=== PATIENT | female | born 1955 | race Caucasian/White ===

== ENCOUNTER 2017-05-11 16:11 | Observation (INO) ==
--- NOTE | 2017-05-11 16:29 | Emergency Department Note ---
Disposition Clinical Impression: Confusion Pneumonia Qualifiers: Pneumonia type: due to unspecified organism Laterality: unspecified laterality Lung location: unspecified part of lung Qualified Code(s): J18.9 - Pneumonia, unspecified organism Disposition: Admitted As Inpatient Condition: Fair Referrals: Rolando Rolon MD [Primary Care Provider] - Forms: Work/School Release, ED Satisfaction Letter Time of Disposition: 19:08 Abdominal Pain HPI - General Chief Complaint: ED Shortness of Breath/Dyspnea Stated Complaint: abd pain, STARLA Time Seen by Provider: 05/11/17 16:19 Source: patient, EMS Mode of arrival: EMS Limitations: no limitations Nursing Notes Reviewed: Yes Vital Signs Reviewed: Yes - History of Present Illness HPI Narrative: 61-year-old female with history of MS comes in with abdominal pain feeling "foggy" and also having some shortness of breath. Patient was recently hospitalized for shortness of breath possible pneumonia. 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 Consistency: constant Location: diffuse Pain Severity: mild Pain Scale: 0 Quality: aching Radiation: none Migration to: no migration Improves with: nothing Worsens with: nothing - Related Data Home Medications Medication Instructions Recorded Confirmed Baclofen [Lioresal] 10 - 20 mg PO BID PRN 05/07/17 05/11/17 Esomeprazole Magnesium [Nexium] 40 mg PO BID 05/07/17 05/11/17 Gabapentin [Neurontin] 300 mg PO BID 05/07/17 05/11/17 Loratadine [Allergy Relief] 10 mg PO DAILY 05/07/17 05/11/17 Nystatin 1 appl TP BID 05/07/17 05/11/17 Polyethylene Glycol 3350 [MiraLAX] 17 gm PO BID PRN 05/07/17 05/11/17 Ziprasidone HCl [Geodon] 80 mg PO HS 05/07/17 05/11/17 Acetaminophen [Tylenol] 500 mg PO Q6HR PRN 05/11/17 05/11/17 Multivitamin [One Daily 1 each PO DAILY 05/11/17 05/11/17 Multivitamin] Oxygen 3 l NS AD 05/11/17 05/11/17 predniSONE [PredniSONE] See Taper PO DAILY 05/11/17 05/11/17 Previous Rx's Medication Instructions Recorded Lisinopril [Zestril] 10 mg PO DAILY #30 tablet 05/10/17 levoFLOXacin [Levaquin] 500 mg PO DAILY #3 tablet 05/10/17 Allergies Allergy/AdvReac Type Severity Reaction Status Date / Time ciprofloxacin [From Cipro] Allergy Itching Verified 05/06/17 18:45 egg Allergy See Verified 05/06/17 18:45 Comments morphine Allergy Hives Verified 05/06/17 18:45 Sulfa (Sulfonamide Allergy Rash Verified 05/06/17 18:45 Antibiotics) All systems ED: reviewed and negative except as stated. Constitutional: Denies: fever, chills, weakness, weight change Eyes: Denies: eye pain, eye discharge, vision change ENT ED: Denies: ear pain, throat pain, dental pain, hearing loss, epistaxis, congestion, dysphagia Cardiovascular: Denies: chest pain, palpitations, dyspnea on exertion, edema, syncope Respiratory: Denies: cough, dyspnea, wheezes, hemoptysis, stridor Gastrointestinal: Reports: abdominal pain. Denies: nausea, vomiting, diarrhea, constipation, hematemesis, melena, hematochezia Genitourinary: Denies: dysuria, frequency, hematuria, discharge Musculoskeletal: Denies: back pain, neck pain, arthralgia, myalgia Integumentary: Denies: rash, abrasion, lesions Neurological: Reports: confusion. 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 Psychiatric history: Reports: anxiety, depression - Social History Smoking status: Never smoker Alcohol use: Reports: none Drug use: Reports: none Physical Exam - General Limitations: no limitations General appearance: alert, in no apparent distress - Head Head exam: atraumatic, normocephalic, normal inspection - Eye Eye exam: Present: normal appearance, PERRL, EOMI - ENT ENT exam: normal exam, normal oropharynx, mucous membranes moist - Neck Neck exam: Present: normal inspection, full ROM, trachea midline - Chest Chest inspection: Present: normal inspection, symmetric chest wall rise - Respiratory Respiratory exam: Present: normal lung sounds bilaterally - Cardiovascular Cardiovascular exam: Present: regular rate, normal rhythm, normal heart sounds - Abdominal Exam Abdominal exam: Present: soft, tenderness. Absent: distention, guarding, rebound, rigidity - Extremities Exam Extremities exam: Present: normal inspection, full ROM. Absent: tenderness, pedal edema - Expanded Lower Extremity Exam Neurovascular/Tendon exam: Absent: motor deficit, sensory deficit, tendon deficit Gait: not tested/not observed - Back Exam Back exam: Present: normal inspection, full ROM. Absent: tenderness - Neurological Exam Neurological exam: Present: alert, oriented X3 - Psychiatric Psychiatric exam: Present: normal affect, normal mood - Skin Skin exam: Present: warm, dry, intact, normal color Course - Reevaluation(s) Reevaluation #1: 61-year-old who comes in with confusion Foggie cough congested. She does have some infiltrates that were thought to be atelectasis but clinically she does have pneumonia. To give her Zosyn and admit her. Time: 19:08 - Consultations Consultation #1: Discussed with Time: 19:08 Vital Signs Temperature 98.2 F 05/11/17 16:15 Pulse Rate 97 05/11/17 16:15 Respiratory Rate 18 05/11/17 16:15 Blood Pressure 129/76 05/11/17 16:15 O2 Sat by Pulse Oximetry 97 05/11/17 16:15 Temperature 98.2 F 05/11/17 16:15 Pulse Rate 107 05/11/17 17:32 Respiratory Rate 23 05/11/17 17:32 Blood Pressure 129/76 05/11/17 17:32 O2 Sat by Pulse Oximetry 94 05/11/17 17:32 Oxygen Delivery Oxygen Delivery Nasal Cannula Abdominal Pain - Lab Data Result diagrams: 05/11/17 18:07 05/11/17 18:07 Lab Results 05/11/17 05/11/17 05/11/17 Range/Units 18:07 18:07 18:07 WBC 10.3 (4.3-11.1) K/mcL RBC 4.59 (3.82-4.97) M/mcL Hgb 12.6 (11.5-15.4) g/dL Hct 41.3 (35.3-44.9) % MCV 90.0 (83.0-100.0) fL MCH 27.5 L (28.0-33.3) pg MCHC 30.5 L (31.6-35.5) g/dL RDW 16.5 H (11.5-14.5) % Plt Count 243 (140-400) K/mcL MPV 11.2 (9.4-12.4) fL Nucleated RBCs/100 WBC 0.2 H (0) /100 WBC Sodium 137 (136-145) mEq/L Potassium 4.1 (3.5-5.1) mEq/L Chloride 100 (98-107) mEq/L Carbon Dioxide 28 (23-29) mEq/L BUN 16 (8-23) mg/dL Creatinine 0.91 (0.60-1.20) mg/dL Est GFR ( Amer) > 60 (> 60) Est GFR (Non-Af Amer) > 60 (> 60) BUN/Creatinine Ratio 18 (6-26) Glucose 121 H (70-105) mg/dL Calculated Osmolality 286 (280-300) Calcium 9.4 (8.6-10.3) mg/dL Total Bilirubin 0.4 (0.3-1.0) mg/dL Direct Bilirubin 0.1 (0.0-0.2) mg/dL Indirect Bilirubin 0.3 (0.0-1.2) mg/dL AST 74 H (13-39) Units/L ALT 193 H (7-52) Units/L Alkaline Phosphatase 64 (34-104) Units/L Troponin I < 0.03 (< 0.04) ng/mL Serum Total Protein 6.9 (6.4-8.9) g/dL Albumin 4.0 (3.5-5.7) g/dL Globulin 2.9 (2.4-3.5) g/dL Albumin/Globulin Ratio 1.4 (1.1-2.2) Amylase 61 (29-103) Units/L Lipase 50 (11-82) Units/L - Radiology Data Radiology results reviewed: Yes I reviewed the patient's radiology results. Abdomen/Pelvis CT 05/11/17 16:22 IMPRESSION: 1. No acute abnormality identified within the abdomen pelvis. 2. Bibasilar airspace disease, greater on the left, probably atelectasis. Correlate with any clinical evidence of pneumonia or aspiration. 3. Re- demonstration of a wide mouthed hernia involving the lower abdomen and pelvis, containing multiple loops of large and small bowel, but without evidence of obstruction. 4. Re- demonstration of a 6.4 cm left adnexal cyst, which remains indeterminate. Based upon the ultrasound in early April, surgical consultation should be considered. D/ / Mac Alves MD / Mac Alves MD Interpreting Provider: Mac Alves MD Head CT 05/11/17 16:23 IMPRESSION: No acute intracranial abnormality. D/ / Julius Rodriguez MD / Julius Rodriguez MD Interpreting Provider: Julius Rodriguez MD Chest X-Ray 05/11/17 16:24 IMPRESSION: Limited hypoventilatory study. Atelectasis versus infiltrate within the left lung base. Nonspecific linear and nodular densities within the right mid lung. D/ / Abdirizak Thornton MD / Abdirizak Thornton MD Interpreting Provider: Abdirizak Thornton MD - EKG Data EKG attestation: Yes I reviewed and interpreted this EKG. EKG shows normal: sinus rhythm Rate: normal Rhythm: NSR [place]/QRS: normal Interpretation: nonspecific ST-T wave changes
[2017-05-11 18:24] LABS: Hematocrit 41.3 % (35.3-44.9); Hemoglobin 12.6 g/dL (11.5-15.4); Mean Corpuscular HGB Conc 30.5 g/dL (31.6-35.5); Mean Corpuscular Hemoglobin 27.5 pg (28.0-33.3); Mean Platelet Volume 11.2 fL (9.4-12.4); Monocytes # 0.5 K/mcL (0.0-1.3); Nucleated Red Blood Cells 0.2 /100 WBC (0); Platelet Count 243 K/mcL (140-400); Red Blood Count 4.59 M/mcL (3.82-4.97); Red Cell Distribution Width 16.5 % (11.5-14.5)
[2017-05-11 18:37] LABS: Alanine Aminotransferase 193 Units/L (7-52); Albumin/Globulin Ratio 1.4 (1.1-2.2); Alkaline Phosphatase 64 Units/L (34-104); Amylase 61 Units/L (29-103); Aspartate Amino Transferase 74 Units/L (13-39); BUN/Creatinine Ratio 18 (6-26); Bilirubin,Direct 0.1 mg/dL (0.0-0.2); Bilirubin,Indirect 0.3 mg/dL (0.0-1.2); Bilirubin,Total 0.4 mg/dL (0.3-1.0); Blood Urea Nitrogen 16 mg/dL (8-23); Calcium 9.4 mg/dL (8.6-10.3); Carbon Dioxide 28 mEq/L (23-29); Chloride 100 mEq/L (98-107); Globulin 2.9 g/dL (2.4-3.5); Glucose 121 mg/dL (70-105); Lipase 50 Units/L (11-82); Osmolality,Calculated 286 (280-300); Potassium 4.1 mEq/L (3.5-5.1); Sodium 137 mEq/L (136-145); Total Protein 6.9 g/dL (6.4-8.9); eGFR For African Americans > 60 (> 60); eGFR For Non-African Americans > 60 (> 60)
[2017-05-11 19:06] LABS: Bilirubin,Urine Negative (Negative); Blood,Urine Moderate (Negative); Clarity,Urine Cloudy (Clear); Color,Urine Yellow (Yellow); Glucose,Urine (UA) Normal (Normal); Ketones,Urine Negative (Negative); Leukocyte Esterase,Urine Large (Negative); Nitrite,Urine Negative (Negative); Protein,Urine Trace mg/dL (Neg-Trace); Specific Gravity,Urine 1.019 (1.010-1.025); Urobilinogen,Urine Normal (Normal)
[2017-05-11 19:09] LABS: Bacteria,Urine None Seen per hpf (None-Few); Hyaline Casts,Urine Few per lpf (None-Few); Squamous Epithelial Cell,Urine Many per lpf (None-Few); WBC,Urine TNTC per hpf (0-3)
[2017-05-11 19:24] LABS: Calcium Oxalate Crystals,Urine Present; Yeast,Urine Many per hpf (None Seen)
[2017-05-11 19:38] LABS: Anisocytosis 1+ (Not Present); Lymphocytes # 1.2 K/mcL (0.6-4.6); Platelet Estimate Normal (Normal)
[2017-05-11] MEDS ORDERED: Loratadine 10 MG TABLET PO STA (19:42)
[2017-05-11] MEDS ORDERED: 0.9 % Sodium Chloride 1,000 ML IVC SCH (23:15)
[2017-05-11] MEDS ORDERED: Naloxone 0.4 MG/ML INJ IVP PRN (23:15)
[2017-05-11] MEDS ORDERED: NON-FORMULARY MEDICATION 1 EACH EACH (Oxygen [Oxygen] 3 L) NS SCH (23:30)
--- NOTE | 2017-05-11 23:30 | Internal Med History&Physical ---
Date of Encounter: 05/11/17 Time of Encounter: 23:23 Assessment and Plan (1) Confusion Current visit: Yes Status: Acute 89/female Admitted with persistent "foggy"feeling. Neurologically intact. No acute neurological deficit noted. CT head: No acute abnormality noted. Plan: Will monitor closely. Frequent neurological checks every 4-6 hours. We will resume home medication. (2) Pneumonia Current visit: Yes Status: Acute Patient was recently hospitalized for pneumonia. She was discharged on 05/10/2017. Upon discharge patient was given a prescription for levofloxacin. Noted that patient had a CT scan done in the emergency department. CT abdomen/pelvis shows bibasilar airspace disease. As we know, radiological resolution of her pneumonia can extend up to 4-6 weeks. Patient was given levofloxacin upon discharge. I will continue oral levofloxacin for now. I will hold the steroid taper dose at this point. Once we get more detailed information regarding the steroid taper then it can restart tomorrow Qualifiers: Pneumonia type: due to unspecified organism Laterality: unspecified laterality Lung location: unspecified part of lung Qualified Code(s): J18.9 - Pneumonia, unspecified organism (3) Abdominal pain Current visit: No Status: Acute At the time of examinations patient's abdominal examination is benign. Patient is not complaining of any pain. Noted that patient's images lipase is within normal limit. Patient's LFT is mildly deranged. We will keep trending LFT. We will continue to monitor her very closely. Qualifiers: Abdominal location: generalized Qualified Code(s): R10.84 - Generalized abdominal pain (4) HTN (hypertension) Current visit: No Status: Acute Patient has blood pressure is within acceptable range. We will continue same medications for now. We will resume home medications. Qualifiers: Hypertension type: essential hypertension Qualified Code(s): I10 - Essential (primary) hypertension (5) DVT prophylaxis Current visit: No Status: Acute SCD Medical decision making: This patient has a moderate to severe risk of worsening in spite of being on appropriate medication due to the underlying complex comorbid conditions. Internal Medicine - H&P: HPI Chief complaint: abdominal pain and feeling unusal. Admitted From: Emergency Dept Plans for Post Hospital Care: Home History of present illness: PCP: Rolando Rolon Brief PMH:HTN, Hyperlipidemia, Anxiety and Depression. HPI: Patient was recently discharged from hospital on 05/10/2017. She was hospitalized for PNA. She was discharged with Levofloxacin. Patient came to emergency room for unusual feeling and abdominal pain. Upon further questioning , patient that she has a "foggy" feeling and that is the reason she came to emergency room for further evaluation. Workup in the emergency room: Patient was evaluated in the emergency room. CT scan of the brain was done. CT scan of the brain did not reveal any abnormality. Chest x-ray did not show any acute process. Patient underwent CT scan of the abdomen. CT scan of the abdomen did not reveal any intra-abdominal abnormality. It was noted that patient has a bibasilar airspace disease. Reason for admission: Possibility of a pneumonia Past Med Surg Social Fam HX - Past Medical History Medical history: arthritis, GERD, hyperlipidemia, hypertension, renal disease, other Psychiatric history: anxiety, depression - Past Surgical History Surgical History: cholecystectomy - Social History Smoking Status: Never smoker Smokeless Tobacco Status: No Alcohol use: none Drug use: none - Family History Son Hx Family GI Disorders: Yes (acid reflux) Internal Medicine - H&P: Meds Baclofen [Lioresal] 10 - 20 mg PO BID PRN 05/07/17 [History] Esomeprazole Magnesium [Nexium] 40 mg PO BID 05/07/17 [History] Gabapentin [Neurontin] 300 mg PO BID 05/07/17 [History] Loratadine [Allergy Relief] 10 mg PO DAILY 05/07/17 [History] Nystatin 1 appl TP BID 05/07/17 [History] Polyethylene Glycol 3350 [MiraLAX] 17 gm PO BID PRN 05/07/17 [History] Ziprasidone HCl [Geodon] 80 mg PO HS 05/07/17 [History] Lisinopril [Zestril] 10 mg PO DAILY #30 tablet 05/10/17 [Rx] levoFLOXacin [Levaquin] 500 mg PO DAILY #3 tablet 05/10/17 [Rx] Acetaminophen [Tylenol] 500 mg PO Q6HR PRN 05/11/17 [History] Multivitamin [One Daily Multivitamin] 1 each PO DAILY 05/11/17 [History] Oxygen 3 l NS AD 05/11/17 [History] predniSONE [PredniSONE] See Taper PO DAILY 05/11/17 [History] 3 Allergy/AdvReac Type Severity Reaction Status Date / Time ciprofloxacin [From Cipro] Allergy Itching Verified 05/06/17 18:45 egg Allergy See Verified 05/06/17 18:45 Comments morphine Allergy Hives Verified 05/06/17 18:45 Sulfa (Sulfonamide Allergy Rash Verified 05/06/17 18:45 Antibiotics) All Systems PM: A 10-system review of systems was performed and is negative for pertinent findings except as documented above in the HPI. - Constitutional Constitutional: no chills, no fever(s), no night sweats - EENT Eyes: no change in vision, no discharge, no pain, no photophobia Ears: no ear discharge, no ear pain, no tinnitus Nose, mouth and throat: no dysphagia, no nasal discharge, no neck pain, no sore throat - Cardiovascular Cardiovascular ROS IM: no chest pain, no diaphoresis, no dyspnea, no lightheadedness, no palpitations, no syncope - Respiratory Respiratory: no cough, no dyspnea, no wheezing, no excessive phlegm production - Gastrointestinal Gastrointestinal: abdominal pain, no diarrhea, no hematemesis, no hematochezia, no melena, no nausea, no vomiting - Genitourinary Genitourinary: no change in urinary stream, no dysuria, no flank pain, no hematuria - Musculoskeletal Musculoskeletal ROS IM: no numbness, no tingling - Integumentary Integumentary IM: no rash, no unusual bruising - Neurological Neurological ROS: no confusion, no convulsions, no focal weakness, no numbness, no tingling, no tremor(s) Additional comments: "Foggy" feeling - Hematologic/Lymphatic Hematologic/Lymphatic: no easy bruising - Constitutional Vitals: Temp Pulse Resp BP Pulse Ox 98.4 F 94 17 140/88 97 05/11/17 20:13 05/11/17 20:13 05/11/17 20:13 05/11/17 20:13 05/11/17 20:13 General appearance: Present: A&O X 3, pleasant, no acute distress, answers questions appropriately - Head Head exam: Present: atraumatic, normocephalic - Eye Eye exam: Present: PERRL, conjuntiva pink, sclera anicteric Pupils: Present: PERRL - Neck Neck exam general surgery: Present: supple, trachea midline. Absent: lymphadenopathy - Respiratory Respiratory exam: Present: CTAB. Absent: accessory muscle use, rales, rhonchi, wheezes - Cardiovascular Cardiovascular exam: Present: RRR, +S1, +S2. Absent: diastolic murmur, gallop, rubs, systolic murmur - GI/Abdominal GI/Abdominal exam: Present: normal bowel sounds, soft, no peritoneal signs. Absent: distended, tenderness - Extremities Exam Extremities exam: Present: warm, radial pulses palpable and symmetrical. Absent : calf tenderness, cyanotic, pedal edema - Neurological Exam Neurological exam: Present: CN II-XII intact, oriented X3, no focal deficits. Absent: pronater drift, facial droop, speech deficit - Skin Skin exam: Present: dry, intact Internal Med - H&P Results - Labs CBC & Chem 7: 05/11/17 18:07 05/11/17 18:07
[2017-05-12] MEDS: Ondansetron 4 MG/2 ML VIAL IVP PRN (01:40)
[2017-05-12 04:07] LABS: Hematocrit 40.6 % (35.3-44.9); Hemoglobin 12.3 g/dL (11.5-15.4); Mean Corpuscular HGB Conc 30.3 g/dL (31.6-35.5); Mean Corpuscular Hemoglobin 27.2 pg (28.0-33.3); Mean Corpuscular Volume 89.6 fL (83.0-100.0); Monocytes # 0.8 K/mcL (0.0-1.3); Platelet Count 295 K/mcL (140-400); Red Blood Count 4.53 M/mcL (3.82-4.97); Red Cell Distribution Width 16.2 % (11.5-14.5)
[2017-05-12 04:28] LABS: INR 1.2; Prothrombin Time 12.7 Seconds (9.4-12.1)
[2017-05-12 04:31] LABS: Activated Partial Thrombo Time 26.8 Seconds (26.0-36.0)
[2017-05-12 04:58] LABS: Alanine Aminotransferase 169 Units/L (7-52); Albumin 3.8 g/dL (3.5-5.7); Albumin/Globulin Ratio 1.5 (1.1-2.2); Alkaline Phosphatase 56 Units/L (34-104); Aspartate Amino Transferase 53 Units/L (13-39); BUN/Creatinine Ratio 17 (6-26); Bilirubin,Total 0.3 mg/dL (0.3-1.0); Blood Urea Nitrogen 13 mg/dL (8-23); Calcium 9.1 mg/dL (8.6-10.3); Carbon Dioxide 28 mEq/L (23-29); Chloride 101 mEq/L (98-107); Chol/HDL Ratio 2.8 (0-4.9); Cholesterol 185 mg/dL (< 200); Globulin 2.6 g/dL (2.4-3.5); Glucose 97 mg/dL (70-105); HDL Cholesterol 67 mg/dL (40-59); LDL Cholesterol,Calculated 75 mg/dL (0-99); Osmolality,Calculated 286 (280-300); Phosphorous 2.8 mg/dL (2.7-4.5); Potassium 3.7 mEq/L (3.5-5.1); Sodium 138 mEq/L (136-145); Total Protein 6.4 g/dL (6.4-8.9); Triglycerides 214 mg/dL (< 150); eGFR For African Americans > 60 (> 60); eGFR For Non-African Americans > 60 (> 60)
[2017-05-12 05:20] LABS: Lymphocytes # 2.5 K/mcL (0.6-4.6); Neutrophils # 6.4 K/mcL (1.6-8.9); Platelet Estimate Normal (Normal); Reactive Lymphocytes Present (Not Present)
[2017-05-12] MEDS: Gabapentin 300 MG CAPSULE PO SCH ×2 (07:17→19:51)
[2017-05-12] MEDS: Loratadine 10 MG TABLET PO SCH (07:17)
[2017-05-12] MEDS ORDERED: levoFLOXacin 500 MG TABLET PO SCH (09:00)
[2017-05-12] MEDS: Benzonatate 100 MG CAPSULE PO PRN (11:18)
--- NOTE | 2017-05-12 18:18 | Internal Med Progress Note ---
Date of Encounter: 05/12/17 Time of Encounter: 11:00 - Assessment and plan (1) Pneumonia Current Visit: Yes Status: Acute Assessment and plan: Patient with productive cough and infiltrates on imaging Will continue IV Levaquin and Zosyn Respiratory panel/cultures pending Qualifiers: Pneumonia type: due to unspecified organism Laterality: unspecified laterality Lung location: unspecified part of lung Qualified Code(s): J18.9 - Pneumonia, unspecified organism (2) Abdominal pain Current Visit: No Status: Acute Assessment and plan: Patient with mild generalized tenderness on exam but able to tolerate by mouth Imaging did show persistent hernia and left adnexal cyst Will continue to monitor Qualifiers: Abdominal location: generalized Qualified Code(s): R10.84 - Generalized abdominal pain (3) Confusion Current Visit: Yes Status: Acute Assessment and plan: Resolved as patient alert and oriented 3 (4) HTN (hypertension) Current Visit: No Status: Acute Assessment and plan: Controlled; continue Sam inhibitor Qualifiers: Hypertension type: essential hypertension Qualified Code(s): I10 - Essential (primary) hypertension (5) DVT prophylaxis Current Visit: No Status: Acute Assessment and plan: Subcutaneous heparin - Subjective Interval history: Patient this morning alert and oriented 3 but with productive cough Patient's abdominal pain has improved and was tolerating by mouth this morning - Constitutional Vitals: Temp Pulse Resp BP Pulse Ox 96.6 F L 110 20 101/53 97 05/12/17 17:12 05/12/17 17:12 05/12/17 17:12 05/12/17 17:12 05/12/17 17:12 General appearance: Present: A&O X 3, pleasant, no acute distress, answers questions appropriately - Respiratory Respiratory exam: Present: CTAB. Absent: respiratory distress, tachypnea - Cardiovascular Cardiovascular exam: Present: RRR, +S1, +S2. Absent: diastolic murmur, gallop, rubs, systolic murmur - GI/Abdominal GI/Abdominal exam: Present: hernia, soft, tenderness (Mild generalized tenderness). Absent: distended, guarding, rebound Internal Medicine: Result - Labs CBC & Chem 7: 05/12/17 03:22 05/12/17 03:44 Labs: Short CBC 05/12/17 Range/Units 03:22 WBC 9.7 (4.3-11.1) K/mcL Hgb 12.3 (11.5-15.4) g/dL Hct 40.6 (35.3-44.9) % Plt Count 295 (140-400) K/mcL Neutrophils # 6.4 (1.6-8.9) K/mcL BMP 05/12/17 03:44 Sodium 138 Potassium 3.7 Chloride 101 Carbon Dioxide 28 BUN 13 Creatinine 0.78 Glucose 97 Calcium 9.1 Liver Function 05/12/17 Range/Units 03:44 Total Bilirubin 0.3 (0.3-1.0) mg/dL AST 53 H (13-39) Units/L ALT 169 H (7-52) Units/L Alkaline Phosphatase 56 (34-104) Units/L Albumin 3.8 (3.5-5.7) g/dL - ABG Interpretation ABG results: PT/INR, D-dimer PT 12.7 Seconds (9.4-12.1) H 05/12/17 03:22 Consult Discharge Plan - Plan Referrals: Rolando Rolon MD [Primary Care Provider] -
[2017-05-12] MEDS: Ziprasidone 80 MG CAPSULE PO SCH (19:52)
[2017-05-12] MEDS ORDERED: Piperacillin/Tazobactam 3.375 GM in 0.9 % Sodium Chloride Mini Bag 100 ML IVPB SCH (20:00)
[2017-05-12] MEDS: Piperacillin/Tazobactam 3.375 GM in 0.9 % Sodium Chloride Mini Bag 100 ML IVPB SCH (22:14)
[2017-05-12] MEDS: *HR* Heparin 5,000 UNIT/ML VIAL SQ SCH (22:15)
[2017-05-13] MEDS: Ondansetron 4 MG/2 ML VIAL IVP PRN ×2 (01:31→15:21)
[2017-05-13 04:13] LABS: Adenovirus Not Detected (Not Detect); Bordetella Pertussis Not Detected (Not Detect); Chlamydophila pneumoniae Not Detected (Not Detect); Coronavirus 229E Not Detected (Not Detect); Coronavirus HKU1 Not Detected (Not Detect); Coronavirus NL63 Not Detected (Not Detect); Coronavirus OC43 Not Detected (Not Detect); Human Metapneumovirus Not Detected (Not Detect); Human Rhinovirus/Enterovirus Not Detected (Not Detect); Influenza A Subtype 2009 H1 Not Detected (Not Detect); Influenza A Untypeable Not Detected (Not Detect); Influenza B Not Detected (Not Detect); Mycoplasma pneumoniae Not Detected (Not Detect); Parainfluenza Virus 1 Not Detected (Not Detect); Parainfluenza Virus 2 Not Detected (Not Detect); Parainfluenza Virus 3 Not Detected (Not Detect); Parainfluenza Virus 4 Not Detected (Not Detect); Respiratory Syncytial Virus Not Detected (Not Detect)
[2017-05-13] MEDS: Piperacillin/Tazobactam 3.375 GM in 0.9 % Sodium Chloride Mini Bag 100 ML IVPB SCH ×3 (05:09→19:46)
[2017-05-13] MEDS: *HR* Heparin 5,000 UNIT/ML VIAL SQ SCH ×3 (05:10→19:53)
[2017-05-13] MEDS ORDERED: 0.9 % Sodium Chloride 500 ML IVC ONE (06:05)
[2017-05-13 06:06] LABS: ABG Base Excess 5 mEq/L (-2 to 3); ABG HCO3 31 mEq/L (21-27); ABG Oxygen Saturation 99 % (95-98); ABG PCO2 51 mmHg (35-45); ABG PH 7.39 pH Units (7.32-7.45); ABG PO2 125 mmHg (85-104); ABG TCO2 33 mEq/L (20-26)
[2017-05-13] MEDS ORDERED: 0.9 % Sodium Chloride 500 ML ONE (06:09)
[2017-05-13] MEDS: Levofloxacin 750 MG/150 ML 750 MG/150 ML BAG IVPB SCH (09:57)
[2017-05-13] MEDS: Gabapentin 300 MG CAPSULE PO SCH ×2 (09:58→19:47)
[2017-05-13] MEDS: Loratadine 10 MG TABLET PO SCH (09:58)
[2017-05-13 11:49] LABS: Basophils % 0.6 %; Eosinophils # 0.1 K/mcL (0.0-0.6); Eosinophils % 1.8 %; Hemoglobin 11.6 g/dL (11.5-15.4); Immature Granulocytes % 4.2 % (0-4); Lymphocytes # 1.5 K/mcL (0.6-4.6); Lymphocytes % 22.1 %; Mean Corpuscular HGB Conc 30.5 g/dL (31.6-35.5); Mean Corpuscular Hemoglobin 27.4 pg (28.0-33.3); Mean Corpuscular Volume 89.8 fL (83.0-100.0); Mean Platelet Volume 12.7 fL (9.4-12.4); Monocytes # 0.7 K/mcL (0.0-1.3); Monocytes % 9.5 %; Neutrophils # 4.2 K/mcL (1.6-8.9); Platelet Count 156 K/mcL (140-400); Red Blood Count 4.23 M/mcL (3.82-4.97); Red Cell Distribution Width 16.6 % (11.5-14.5); Segmented Neutrophils % 61.8 %
[2017-05-13 12:13] LABS: BUN/Creatinine Ratio 15 (6-26); Blood Urea Nitrogen 15 mg/dL (8-23); Calcium 8.7 mg/dL (8.6-10.3); Carbon Dioxide 27 mEq/L (23-29); Chloride 106 mEq/L (98-107); Glucose 109 mg/dL (70-105); Osmolality,Calculated 293 (280-300); Potassium 5.4 mEq/L (3.5-5.1); Sodium 141 mEq/L (136-145); eGFR For African Americans > 60 (> 60); eGFR For Non-African Americans 55 (> 60)
--- NOTE | 2017-05-13 18:58 | Internal Med Progress Note ---
Date of Encounter: 05/13/17 Time of Encounter: 11:00 - Assessment and plan (1) Pneumonia Current Visit: Yes Status: Acute Assessment and plan: Patient with productive cough and infiltrates on imaging Will continue IV Levaquin and Zosyn Respiratory panel negative; sputum cultures pending Qualifiers: Pneumonia type: due to unspecified organism Laterality: unspecified laterality Lung location: unspecified part of lung Qualified Code(s): J18.9 - Pneumonia, unspecified organism (2) Abdominal pain Current Visit: No Status: Acute Assessment and plan: Resolved Imaging did show persistent hernia and left adnexal cyst Will continue to monitor Qualifiers: Abdominal location: generalized Qualified Code(s): R10.84 - Generalized abdominal pain (3) Confusion Current Visit: Yes Status: Acute Assessment and plan: Resolved as patient alert and oriented 3 CT of the head/MRI of brain negative Continue to monitor (4) HTN (hypertension) Current Visit: No Status: Acute Assessment and plan: Controlled; continue Sam inhibitor Qualifiers: Hypertension type: essential hypertension Qualified Code(s): I10 - Essential (primary) hypertension (5) DVT prophylaxis Current Visit: No Status: Acute Assessment and plan: Subcutaneous heparin - Subjective Interval history: Patient this morning alert and oriented 3 Patient was reported however overnight of having altered mental status CT of the head and MRI of the brain were both negative Patient no longer complaining of abdominal pain this morning - Constitutional Vitals: Temp Pulse Resp BP Pulse Ox 97.6 F 92 18 127/83 97 05/13/17 15:00 05/13/17 15:00 05/13/17 15:00 05/13/17 15:00 05/13/17 15:00 General appearance: Present: A&O X 3, pleasant, no acute distress, answers questions appropriately - Respiratory Respiratory exam: Present: CTAB. Absent: accessory muscle use, rales, rhonchi, wheezes - Cardiovascular Cardiovascular exam: Present: RRR, +S1, +S2. Absent: diastolic murmur, gallop, rubs, systolic murmur - GI/Abdominal GI/Abdominal exam: Present: normal bowel sounds, soft, no peritoneal signs. Absent: distended, tenderness Internal Medicine: Result - Labs CBC & Chem 7: 05/13/17 10:27 05/13/17 11:32 Labs: Short CBC 05/13/17 Range/Units 10:27 WBC 6.8 (4.3-11.1) K/mcL Hgb 11.6 (11.5-15.4) g/dL Hct 38.0 (35.3-44.9) % Plt Count 156 (140-400) K/mcL Neutrophils # 4.2 (1.6-8.9) K/mcL BMP 05/13/17 11:32 Sodium 141 Potassium 5.4 H Chloride 106 Carbon Dioxide 27 BUN 15 Creatinine 1.02 Glucose 109 H Calcium 8.7 - ABG Interpretation ABG results: ABG ABG pH 7.39 pH Units (7.32-7.45) 05/13/17 06:03 ABG pCO2 51 mmHg (35-45) H 05/13/17 06:03 ABG pO2 125 mmHg (85-104) H 05/13/17 06:03 ABG O2 Saturation 99 % (95-98) H 05/13/17 06:03 PT/INR, D-dimer PT 12.7 Seconds (9.4-12.1) H 05/12/17 03:22 - Impressions Impressions Head CT 05/13/17 06:07 IMPRESSION: 1. No acute intracranial abnormality. D/ / 05/13/2017 07:49:37 Mario Lauren MD / margareth Interpreting Provider: Mario Lauren MD Brain MRI 05/13/17 12:07 IMPRESSION: 1. No acute infarct, intracranial hemorrhage, or significant mass effect. 2. Chronic small vessel ischemic white matter disease and cerebral volume loss. D/ / Moe Maria MD / Moe Maria MD Interpreting Provider: Moe Maria MD Consult Discharge Plan - Plan Referrals: Rolando Rolon MD [Primary Care Provider] -
[2017-05-13] MEDS: Ziprasidone 80 MG CAPSULE PO SCH (19:47)
[2017-05-13 20:45] LABS: Amphetamine Screen,Urine Negative ng/mL (Cutoff=1000); Barbiturate Screen,Urine Negative ng/mL (Cutoff=200); Benzodiazepines Screen,Urine Negative ng/mL (Cutoff=200); Cannabinoid Screen,Urine Negative ng/mL (Cutoff = 50); Cocaine Screen,Urine Negative ng/mL (Cutoff= 300); Opiate Screen,Urine Positive ng/mL (Cutoff=300); Phencyclidine Screen,Urine Negative ng/mL (Cutoff=25)
[2017-05-14] MEDS: Piperacillin/Tazobactam 3.375 GM in 0.9 % Sodium Chloride Mini Bag 100 ML IVPB SCH ×2 (04:36→11:23)
[2017-05-14] MEDS: *HR* Heparin 5,000 UNIT/ML VIAL SQ SCH ×3 (04:37→20:33)
[2017-05-14] MEDS: Gabapentin 300 MG CAPSULE PO SCH ×2 (08:23→20:33)
[2017-05-14] MEDS: Loratadine 10 MG TABLET PO SCH (08:23)
[2017-05-14] MEDS: Levofloxacin 750 MG/150 ML 750 MG/150 ML BAG IVPB SCH (08:24)
[2017-05-14 10:33] LABS: Basophils # 0.1 K/mcL (0.0-0.2); Basophils % 0.7 %; Eosinophils # 0.3 K/mcL (0.0-0.6); Eosinophils % 3.2 %; Hematocrit 37.5 % (35.3-44.9); Hemoglobin 11.8 g/dL (11.5-15.4); Immature Granulocytes % 2.6 % (0-4); Lymphocytes # 1.1 K/mcL (0.6-4.6); Lymphocytes % 12.9 %; Mean Corpuscular HGB Conc 31.5 g/dL (31.6-35.5); Mean Corpuscular Hemoglobin 27.8 pg (28.0-33.3); Mean Corpuscular Volume 88.2 fL (83.0-100.0); Mean Platelet Volume 11.7 fL (9.4-12.4); Monocytes # 0.7 K/mcL (0.0-1.3); Monocytes % 7.9 %; Neutrophils # 6.2 K/mcL (1.6-8.9); Platelet Count 211 K/mcL (140-400); Red Blood Count 4.25 M/mcL (3.82-4.97); Red Cell Distribution Width 16.9 % (11.5-14.5); Segmented Neutrophils % 72.7 %
[2017-05-14] MEDS: Ondansetron 4 MG/2 ML VIAL IVP PRN ×2 (10:36→17:52)
[2017-05-14 11:08] LABS: BUN/Creatinine Ratio 11 (6-26); Blood Urea Nitrogen 10 mg/dL (8-23); Calcium 8.7 mg/dL (8.6-10.3); Carbon Dioxide 25 mEq/L (23-29); Chloride 106 mEq/L (98-107); Glucose 147 mg/dL (70-105); Osmolality,Calculated 294 (280-300); Sodium 141 mEq/L (136-145); eGFR For African Americans > 60 (> 60); eGFR For Non-African Americans > 60 (> 60)
[2017-05-14 11:10] LABS: Potassium 3.8 mEq/L (3.5-5.1)
[2017-05-14] MEDS: metroNIDAZOLE 500 MG TABLET PO SCH ×2 (14:05→20:33)
--- NOTE | 2017-05-14 19:00 | Internal Med Progress Note ---
Date of Encounter: 05/14/17 Time of Encounter: 11:00 - Assessment and plan (1) Pneumonia Current Visit: Yes Status: Acute Assessment and plan: Patient no longer with productive cough, has been afebrile and without leukocytosis Will deescalate IV Levaquin and Zosyn and start Augmentin Respiratory panel negative Qualifiers: Pneumonia type: due to unspecified organism Laterality: unspecified laterality Lung location: unspecified part of lung Qualified Code(s): J18.9 - Pneumonia, unspecified organism (2) Abdominal pain Current Visit: No Status: Acute Assessment and plan: Resolved Imaging did show persistent hernia and left adnexal cyst Will continue to monitor Qualifiers: Abdominal location: generalized Qualified Code(s): R10.84 - Generalized abdominal pain (3) Confusion Current Visit: Yes Status: Acute Assessment and plan: Resolved as patient alert and oriented 3 CT of the head/MRI of brain negative Continue to monitor (4) HTN (hypertension) Current Visit: No Status: Acute Assessment and plan: Controlled; continue Sam inhibitor Qualifiers: Hypertension type: essential hypertension Qualified Code(s): I10 - Essential (primary) hypertension (5) DVT prophylaxis Current Visit: No Status: Acute Assessment and plan: Subcutaneous heparin - Subjective Interval history: Patient this morning alert and oriented 3 CT of the head and MRI of the brain were both negative Patient no longer complaining of abdominal pain this morning - Constitutional Vitals: Temp Pulse Resp BP Pulse Ox 97.5 F L 100 18 113/70 100 05/14/17 11:22 05/14/17 11:22 05/14/17 11:22 05/14/17 11:22 05/14/17 11:22 General appearance: Present: A&O X 3, pleasant, no acute distress, answers questions appropriately - Respiratory Respiratory exam: Present: CTAB. Absent: accessory muscle use, rales, rhonchi, wheezes - Cardiovascular Cardiovascular exam: Present: RRR, +S1, +S2. Absent: diastolic murmur, gallop, rubs, systolic murmur - GI/Abdominal GI/Abdominal exam: Present: normal bowel sounds, soft, no peritoneal signs. Absent: distended, tenderness Internal Medicine: Result - Labs CBC & Chem 7: 05/14/17 09:36 05/14/17 09:36 Labs: Short CBC 03/05/18 Range/Units 09:36 WBC 8.5 (4.3-11.1) K/mcL Hgb 11.8 (11.5-15.4) g/dL Hct 37.5 (35.3-44.9) % Plt Count 211 (140-400) K/mcL Neutrophils # 6.2 (1.6-8.9) K/mcL BMP 05/14/17 09:36 Sodium 141 Potassium 3.8 D Chloride 106 Carbon Dioxide 25 BUN 10 Creatinine 0.87 Glucose 147 H Calcium 8.7 - ABG Interpretation ABG results: ABG ABG pH 7.39 pH Units (7.32-7.45) 05/13/17 06:03 ABG pCO2 51 mmHg (35-45) H 05/13/17 06:03 ABG pO2 125 mmHg (85-104) H 05/13/17 06:03 ABG O2 Saturation 99 % (95-98) H 05/13/17 06:03 PT/INR, D-dimer PT 12.7 Seconds (9.4-12.1) H 05/12/17 03:22 - VTE Documentation of Mechanical Device: Graduated compression elastic hosiery Consult Discharge Plan - Plan Referrals: Rolando Rolon MD [Primary Care Provider] -
[2017-05-14] MEDS: Ziprasidone 80 MG CAPSULE PO SCH (20:34)
[2017-05-15] MEDS: Ondansetron 4 MG/2 ML VIAL IVP PRN ×3 (03:04→16:57)
[2017-05-15] MEDS: *HR* Heparin 5,000 UNIT/ML VIAL SQ SCH ×3 (05:57→20:48)
[2017-05-15] MEDS: metroNIDAZOLE 500 MG TABLET PO SCH (08:01)
[2017-05-15] MEDS: Gabapentin 300 MG CAPSULE PO SCH ×2 (08:02→20:47)
[2017-05-15] MEDS: Loratadine 10 MG TABLET PO SCH (08:02)
[2017-05-15] MEDS: levoFLOXacin 750 MG TABLET PO SCH (08:02)
--- NOTE | 2017-05-15 08:42 | Electrocardiograph Report ---
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
--- NOTE | 2017-05-15 16:23 | Internal Med Progress Note ---
Date of Encounter: 05/15/17 Time of Encounter: 09:25 - Assessment and plan (1) Pneumonia Current Visit: Yes Status: Acute Assessment and plan: Patient was recently discharged one day prior to this admission, after being treated for pneumonia and was discharged on oral Levaquin and steroid taper. Improving clinically. Has been on Levaquin and Flagyl during this admission for suspected aspiration. Patient continues to be on solid diet and thin liquids with no difficulty swallowing and also complains of significant nausea and GI distress. We will discontinue Flagyl at this time. Continue breathing treatments and supplemental oxygen as needed. Urine legionella and Streptococcus pneumoniae antigen negative. Sputum culture with no significant growth. Qualifiers: Pneumonia type: due to unspecified organism Laterality: unspecified laterality Lung location: unspecified part of lung Qualified Code(s): J18.9 - Pneumonia, unspecified organism (2) HTN (hypertension) Current Visit: Yes Status: Chronic Assessment and plan: Blood pressure noted to be well controlled. Continue lisinopril. Qualifiers: Hypertension type: essential hypertension Qualified Code(s): I10 - Essential (primary) hypertension (3) Chronic pain syndrome Current Visit: Yes Status: Chronic (4) Acute encephalopathy Current Visit: Yes Status: Resolved Assessment and plan: Likely due to toxic-metabolic causes. Urine drug screen at admission was positive for opiates. Patient's home medication list is not indicative of this. Per social media marketing analyst's note, patient may have taken morphine left over from an old prescription, prior to this admission. Currently at baseline mental status. Not agreeable to being discharged today due to nausea. - Subjective Interval history: Reports nausea and stomach upset. No significant abdominal pain or vomiting. No diarrhea or constipation. Improving shortness of breath, continues to have intermittent moist cough. No fever or chills. - Constitutional Vitals: Temp Pulse Resp BP Pulse Ox 98.2 F 117 22 112/67 96 05/15/17 15:05/15/17 15:05/15/17 15:05/15/17 15:05/15/17 15:09 General appearance: Present: A&O X 3, obese, answers questions appropriately - Respiratory Respiratory exam: Present: CTAB. Absent: accessory muscle use, rales, rhonchi, wheezes - Cardiovascular Cardiovascular exam: Present: RRR, +S1, +S2. Absent: diastolic murmur, gallop, rubs, systolic murmur - GI/Abdominal GI/Abdominal exam: Present: normal bowel sounds, soft (obese, midline vertical surgical scar+), no peritoneal signs. Absent: distended, tenderness - Extremities Exam Extremities exam: Present: full ROM, warm, radial pulses palpable and symmetrical. Absent: calf tenderness, cyanotic, pedal edema - Neurological Exam Neurological exam: Present: CN II-XII intact, oriented X3, no focal deficits (B/ L LE weakness and contractures). Absent: pronater drift, facial droop, speech deficit Internal Medicine: Result - Labs CBC & Chem 7: 05/14/17 09:36 05/14/17 09:36 - ABG Interpretation ABG results: ABG ABG pH 7.39 pH Units (7.32-7.45) 05/13/17 06:03 ABG pCO2 51 mmHg (35-45) H 05/13/17 06:03 ABG pO2 125 mmHg (85-104) H 05/13/17 06:03 ABG O2 Saturation 99 % (95-98) H 05/13/17 06:03 PT/INR, D-dimer PT 12.7 Seconds (9.4-12.1) H 05/12/17 03:22 - Impressions Impressions Head CT 05/13/17 06:07 IMPRESSION: 1. No acute intracranial abnormality. D/ / 05/13/2017 07:49:37 Mario Lauren MD / margareth Interpreting Provider: Mario Lauren MD - VTE Documentation of Mechanical Device: Graduated compression elastic hosiery Consult Discharge Plan - Plan Referrals: Rolando Rolon MD [Primary Care Provider] -
[2017-05-15] MEDS: Ziprasidone 80 MG CAPSULE PO SCH (20:52)
[2017-05-16] MEDS: Loratadine 10 MG TABLET PO SCH (02:55)
[2017-05-16] MEDS: *HR* Heparin 5,000 UNIT/ML VIAL SQ SCH ×2 (05:11→20:12)
[2017-05-16] MEDS: levoFLOXacin 750 MG TABLET PO SCH (08:58)
[2017-05-16] MEDS: Gabapentin 300 MG CAPSULE PO SCH (08:58)
[2017-05-16] MEDS: Benzonatate 100 MG CAPSULE PO PRN (09:04)
[2017-05-16] MEDS ORDERED: Fluticasone Propionate Nasal 50 MCG/SPRAY BOTTLE NS SCH (12:15)
--- NOTE | 2017-05-16 13:16 | Discharge Summary ---
Orders not resulted at time of discharge: Pending orders 05/15/17 10:36 Culture,Stool [RM] Routine Date of Encounter: 05/16/17 Time of Encounter: 13:13 - Discharge Diagnosis (1) Pneumonia Priority: Primary Status: Acute Qualifiers: Pneumonia type: due to unspecified organism Laterality: unspecified laterality Lung location: unspecified part of lung Qualified Code(s): J18.9 - Pneumonia, unspecified organism (2) HTN (hypertension) Priority: Secondary Status: Chronic Qualifiers: Hypertension type: essential hypertension Qualified Code(s): I10 - Essential (primary) hypertension (3) Chronic pain syndrome Priority: Secondary Status: Chronic (4) Acute encephalopathy Priority: Primary Status: Resolved Hospital course: Ms. Alberto is a 61 year old female in bed bound patient with the above medical problems, was admitted with worsening shortness of breath and moist cough. Patient was just discharged from our hospital after being treated with pneumonia the day prior to this admission. She was sent home on oral Levaquin but reports that she got worse with worsening dyspnea and cough. She was not septic during this hospitalization, was treated with IV Levaquin and Flagyl due to concern for aspiration. Sputum culture showed no significant growth, urine Legionella and Streptococcus pneumoniae antigen negative. Patient is able to tolerate regular diet and thin liquids with no choking or dyspnea. She further reported significant nausea and GI distress and Flagyl was eventually discontinued. Patient is currently medically stable for discharge on a longer course of oral Levaquin along with a prescription for Flonase and Tessalon. She is noted to have mild elevation in liver enzymes, which is now improving, uncertain etiology. Discharge discussed with: patient, family - Time Spent with Patient Total time spent providing and/or coordinating discharge services: Greater than 30 minutes (50 min) - Discharge Medications Prescriptions: Benzonatate [Tessalon] 100 mg PO TID PRN #30 capsule PRN Reason: Cough Fluticasone Propionate Nasal [Flonase] 100 mcg NS DAILY 20 Days bottle levoFLOXacin [Levaquin] 750 mg PO DAILY #5 tablet Home Medications: Baclofen [Lioresal] 10 - 20 mg PO BID PRN 05/07/17 [History] Esomeprazole Magnesium [Nexium] 40 mg PO BID 05/07/17 [History] Gabapentin [Neurontin] 300 mg PO BID 05/07/17 [History] Nystatin 1 appl TP BID 05/07/17 [History] Polyethylene Glycol 3350 [MiraLAX] 17 gm PO BID PRN 05/07/17 [History] Ziprasidone HCl [Geodon] 80 mg PO HS 05/07/17 [History] Lisinopril [Zestril] 10 mg PO DAILY #30 tablet 05/10/17 [Rx] Acetaminophen [Tylenol] 500 mg PO Q6HR PRN 05/11/17 [History] Multivitamin [One Daily Multivitamin] 1 each PO DAILY 05/11/17 [History] Oxygen 3 l NS AD 05/11/17 [History] predniSONE [PredniSONE] See Taper PO DAILY 05/11/17 [History] Benzonatate [Tessalon] 100 mg PO TID PRN #30 capsule 05/16/17 [Rx] Fluticasone Propionate Nasal [Flonase] 100 mcg NS DAILY 20 Days bottle [Rx] levoFLOXacin [Levaquin] 750 mg PO DAILY #5 tablet 05/16/17 [Rx] Allergies/Adverse Reactions: 3 Allergy/AdvReac Type Severity Reaction Status Date / Time ciprofloxacin [From Cipro] Allergy Itching Verified 05/06/17 18:45 egg Allergy See Verified 05/06/17 18:45 Comments morphine Allergy Hives Verified 05/06/17 18:45 Sulfa (Sulfonamide Allergy Rash Verified 05/06/17 18:45 Antibiotics) Date of admission: 05/11/17 19:29 Primary care physician: Rolando Rolon MD Consults: 05/14/17 16:21 Consult to Service Mechanic [CONS] Routine Reason for Consult: Possible discharge needs Discharging clinician: Melva Burris Anticipated date of discharge: 05/16/17 - Constitutional Vitals: Temp Pulse Resp BP Pulse Ox 98.6 F 99 18 141/91 92 05/16/17 10:32 05/16/17 10:32 05/16/17 10:32 05/16/17 10:32 05/16/17 10:32 General appearance: Present: A&O X 3, obese, answers questions appropriately - Respiratory Respiratory exam: Present: CTAB. Absent: accessory muscle use, rales, rhonchi, wheezes - Cardiovascular Cardiovascular exam: Present: RRR, +S1, +S2. Absent: diastolic murmur, gallop, rubs, systolic murmur - Patient Status Disposition: Home, Self-Care Condition: Fair Functional capacity at discharge: bed bound Overall status at discharge: patient is progressing back to baseline - Discharge Instructions Follow Up With: Rolando Rolon MD [Primary Care Provider] - Additional Instructions: F/up with PCP in 1-2 weeks F/up with Urology in 3-4 weeks - Diet and Activity Activity: as per physical therapy, wear oxygen at all times Diet: low fat, low cholesterol, low salt diet - VTE Documentation of Mechanical Device: Graduated compression elastic hosiery
[2017-05-16 14:58] VITALS: BP 107/58
[2017-05-16 15:37] LABS: Albumin 3.4 g/dL (3.5-5.7); Albumin/Globulin Ratio 1.3 (1.1-2.2); Bilirubin,Direct 0.1 mg/dL (0.0-0.2); Bilirubin,Indirect 0.3 mg/dL (0.0-1.2); Bilirubin,Total 0.4 mg/dL (0.3-1.0); Globulin 2.6 g/dL (2.4-3.5)
== END 2017-05-16 19:40 | disposition home or self-care (01) ==
LOC: EMEROO 16:11 → 2ANU 16:11 → SUATTDRO 19:29 → 2ANU 19:57
PROVIDERS: ADMIT Pediatrics; ATTEND Internal Medicine

== ENCOUNTER 2017-05-20 14:04 | Inpatient (IN) ==
--- NOTE | 2017-05-20 14:40 | Emergency Department Note ---
Disposition Clinical Impression: Confusion Altered mental status Qualifiers: Altered mental status type: disorientation Qualified Code(s): R41.0 - Disorientation, unspecified Disposition: Admitted As Inpatient Condition: Fair Reasons to Return/Additional Instructions: Admitted as inpatient Time of Disposition: 18:18 SOB HPI - General Chief Complaint: ED Shortness of Breath/Dyspnea Stated Complaint: STARLA, confused Time Seen by Provider: 05/20/17 14:06 Source: patient, EMS Mode of arrival: EMS Limitations: altered mental status Nursing Notes Reviewed: Yes Vital Signs Reviewed: Yes - History of Present Illness 61-year-old female who was recently discharged from this facility with diagnosis of altered mental status as well as pneumonia presents to emergency room with complaint of shortness of breath, abdominal pain, nausea. During time of exam, patient appears to be altered and is not able to communicate her symptoms. She does not yesterday noted to questions and indicates that she is feeling short of breath, nauseous, and is having abdominal pain located diffusely in her abdomen. Pt Subjective Complaint: shortness of breath - Related Data Home Medications Medication Instructions Recorded Confirmed Baclofen [Lioresal] 10 - 20 mg PO BID PRN 05/07/17 05/11/17 Esomeprazole Magnesium [Nexium] 40 mg PO BID 05/07/17 05/11/17 Gabapentin [Neurontin] 300 mg PO BID 05/07/17 05/11/17 Polyethylene Glycol 3350 [MiraLAX] 17 gm PO BID PRN 05/07/17 05/11/17 Ziprasidone HCl [Geodon] 80 mg PO HS 05/07/17 05/11/17 Acetaminophen [Tylenol] 500 mg PO Q6HR PRN 05/11/17 05/11/17 Multivitamin [One Daily 1 each PO DAILY 05/11/17 05/11/17 Multivitamin] Oxygen 3 l NS AD 05/11/17 05/11/17 Previous Rx's Medication Instructions Recorded Lisinopril [Zestril] 10 mg PO DAILY #30 tablet 05/10/17 Benzonatate [Tessalon] 100 mg PO TID PRN #30 capsule 05/16/17 Fluticasone Propionate Nasal 100 mcg NS DAILY 20 Days bottle 05/16/17 [Flonase] levoFLOXacin [Levaquin] 750 mg PO DAILY #5 tablet 05/16/17 Allergies Allergy/AdvReac Type Severity Reaction Status Date / Time ciprofloxacin [From Cipro] Allergy Itching Verified 05/20/17 14:14 egg Allergy See Verified 05/20/17 14:14 Comments morphine Allergy Hives Verified 05/20/17 14:14 Sulfa (Sulfonamide Allergy Rash Verified 05/20/17 14:14 Antibiotics) Limitations: ROS unobtainable due to patients medical condition Past Medical History - Past Medical History Medical history: Reports: arthritis, GERD, hyperlipidemia, hypertension, renal disease, other Surgical history: Reports: cholecystectomy Psychiatric history: Reports: anxiety, depression 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 Absent: respiratory distress - Cardiovascular Cardiovascular exam: Present: regular rate, normal rhythm, normal heart sounds - Abdominal Exam Abdominal exam: Present: soft, tenderness. Absent: distention, guarding, rebound, rigidity - Neurological Exam Neurological exam: Present: alert. Absent: oriented X3 - Psychiatric Psychiatric exam: Present: anxious - Skin Skin exam: Present: warm, dry, intact, normal color Course Course Narrative: We will obtain head CT, chest x-ray, EKG, labs of CBC, BMP, troponin, urinalysis. Vital Signs Temperature 97.8 F 05/20/17 14:11 Pulse Rate 99 05/20/17 14:11 Respiratory Rate 18 05/20/17 14:11 Blood Pressure 148/91 05/20/17 14:11 O2 Sat by Pulse Oximetry 100 05/20/17 14:11 Temperature 97.8 F 05/20/17 14:11 Pulse Rate 100 05/20/17 16:00 Respiratory Rate 20 05/20/17 17:53 Blood Pressure 142/83 05/20/17 17:53 O2 Sat by Pulse Oximetry 100 05/20/17 16:00 Oxygen Delivery Oxygen Delivery Room Air Shortness of Breath/Dyspnea - [facility] Narrative Medical decision making narrative: 61-year-old female presenting with shortness of breath, confusion shortness morning. Chest x-ray revealed no acute abnormality and head CT was unremarkable except for possible motion artifacts. Lab results grossly unremarkable. Due to concern for altered mental status however as well as witnessed decreased orientation and alertness during emergency department stay, we will discuss this with the hospitalist for possible admission for altered mental status. Spoke with hospitalist, who agree with admission. - Lab Data Result diagrams: 05/20/17 17:20 05/20/17 15:57 Lab Results 05/20/17 05/20/17 05/20/17 Range/Units 15:57 15:57 16:44 WBC (4.3-11.1) K/mcL RBC (3.82-4.97) M/mcL Hgb (11.5-15.4) g/dL Hct (35.3-44.9) % MCV (83.0-100.0) fL MCH (28.0-33.3) pg MCHC (31.6-35.5) g/dL RDW (11.5-14.5) % Plt Count (140-400) K/mcL MPV (9.4-12.4) fL Immature Gran % (0-4) % Seg Neutrophils % % Lymphocytes % % Monocytes % % Eosinophils % % Basophils % % Neutrophils # (1.6-8.9) K/mcL Lymphocytes # (0.6-4.6) K/mcL Monocytes # (0.0-1.3) K/mcL Eosinophils # (0.0-0.6) K/mcL Basophils # (0.0-0.2) K/mcL Sodium 141 (136-145) mEq/L Potassium 3.9 (3.5-5.1) mEq/L Chloride 107 (98-107) mEq/L Carbon Dioxide 25 (23-29) mEq/L BUN 6 L (8-23) mg/dL Creatinine 0.71 (0.60-1.20) mg/dL Est GFR ( Amer) > 60 (> 60) Est GFR (Non-Af Amer) > 60 (> 60) BUN/Creatinine Ratio 8 (6-26) Glucose 76 (70-105) mg/dL Calculated Osmolality 288 (280-300) Lactic Acid 2.1 (0.5-2.2) mmol/L Calcium 9.5 (8.6-10.3) mg/dL Troponin I < 0.03 (< 0.04) ng/mL B-Natriuretic Peptide (Less than 100) pg/mL Urine Color (Yellow) Urine Clarity (Clear) Urine pH (5.0-8.0) pH Units Ur Specific [place] (1.010-1.025) Urine Protein (Neg-Trace) mg/dL Urine Glucose (UA) (Normal) mg/dL Urine Ketones (Negative) mg/dL Urine Blood (Negative) Urine Nitrite (Negative) Urine Bilirubin (Negative) Urine Urobilinogen (Normal) mg/dL Ur Leukocyte Esterase (Negative) Urine Microscopic RBC (0-3) per hpf Urine Microscopic WBC (0-3) per hpf Ur Squamous Epith Cells (None-Few) per lpf Urine Bacteria (None-Few) per hpf Urine Yeast (None Seen) per hpf Ur Culture Indicated? (NO) Specimen Rejected Clotted 05/20/17 05/20/17 05/20/17 Range/Units 17:00 17:20 17:20 WBC 8.7 (4.3-11.1) K/mcL RBC 4.48 (3.82-4.97) M/mcL Hgb 12.5 (11.5-15.4) g/dL Hct 40.9 (35.3-44.9) % MCV 91.3 (83.0-100.0) fL MCH 27.9 L (28.0-33.3) pg MCHC 30.6 L (31.6-35.5) g/dL RDW 17.7 H (11.5-14.5) % Plt Count 253 (140-400) K/mcL MPV 11.2 (9.4-12.4) fL Immature Gran % 0.6 (0-4) % Seg Neutrophils % 71.5 % Lymphocytes % 15.4 % Monocytes % 9.8 % Eosinophils % 2.0 % Basophils % 0.7 % Neutrophils # 6.2 (1.6-8.9) K/mcL Lymphocytes # 1.3 (0.6-4.6) K/mcL Monocytes # 0.9 (0.0-1.3) K/mcL Eosinophils # 0.2 (0.0-0.6) K/mcL Basophils # 0.1 (0.0-0.2) K/mcL Sodium (136-145) mEq/L Potassium (3.5-5.1) mEq/L Chloride (98-107) mEq/L Carbon Dioxide (23-29) mEq/L BUN (8-23) mg/dL Creatinine (0.60-1.20) mg/dL Est GFR ( Amer) (> 60) Est GFR (Non-Af Amer) (> 60) BUN/Creatinine Ratio (6-26) Glucose (70-105) mg/dL Calculated Osmolality (280-300) Lactic Acid (0.5-2.2) mmol/L Calcium (8.6-10.3) mg/dL Troponin I (< 0.04) ng/mL B-Natriuretic Peptide 30 (Less than 100) pg/mL Urine Color Yellow (Yellow) Urine Clarity Cloudy A (Clear) Urine pH 6.5 (5.0-8.0) pH Units Ur Specific [place] 1.016 (1.010-1.025) Urine Protein 30 H (Neg-Trace) mg/dL Urine Glucose (UA) Normal (Normal) mg/dL Urine Ketones Negative (Negative) mg/dL Urine Blood Moderate H (Negative) Urine Nitrite Negative (Negative) Urine Bilirubin Negative (Negative) Urine Urobilinogen Normal (Normal) mg/dL Ur Leukocyte Esterase Moderate H (Negative) Urine Microscopic RBC 30-50 H (0-3) per hpf Urine Microscopic WBC 50-100 H (0-3) per hpf Ur Squamous Epith Cells Many H (None-Few) per lpf Urine Bacteria None Seen (None-Few) per hpf Urine Yeast Moderate H (None Seen) per hpf Ur Culture Indicated? NO. (NO) Specimen Rejected Attestation Statement - Attestation Attestation: I, Soy Martin, examined this patient and my medical decision-making was reviewed with the GREEN HIDE INSPECTOR/PA/Advanced Practice Nurse/Resident Physician. I agree with the documented findings, disposition and treatment plan as described except to the extent set forth below. 60-year-old female presents emergency Department with concerns of altered mental status and possible difficulty breathing. Patient was recently discharged from the hospital after admission for pneumonia. Family states that she woke at 3 AM and was unable to communicate and was "unresponsive" they did state that she was looking around and had her eyes open however she had difficulty communicating. On initial evaluation emergency department the the patient was unable to communicate via speech however she does understand what was being asked and was able to nod her head yes or no. During observation in emergency department during her workup she was then able to answer questions in 2-3 word answers. Family is now present in the emergency department states that she is back to her baseline. Patient is a poor historian and is unable to give an appropriate history regarding her case presentation. Patient now states that she has some mild cough and shortness of breath however she is also concerned about abdominal pain. Family states patient has had chronic abdominal pain and this is likely unchanged. We will evaluate further for altered mental status and possible TIA and patient will likely be admitted hospital.
[2017-05-20] MEDS ORDERED: Ondansetron 4 MG/2 ML VIAL IVP ONE (15:43)
[2017-05-20] MEDS ORDERED: Acetaminophen 325 MG TABLET PO ONE (15:43)
[2017-05-20 16:35] LABS: BUN/Creatinine Ratio 8 (6-26); Blood Urea Nitrogen 6 mg/dL (8-23); Calcium 9.5 mg/dL (8.6-10.3); Carbon Dioxide 25 mEq/L (23-29); Chloride 107 mEq/L (98-107); Glucose 76 mg/dL (70-105); Osmolality,Calculated 288 (280-300); Potassium 3.9 mEq/L (3.5-5.1); Sodium 141 mEq/L (136-145); Troponin I < 0.03 ng/mL (< 0.04); eGFR For African Americans > 60 (> 60); eGFR For Non-African Americans > 60 (> 60)
[2017-05-20 17:19] LABS: Bilirubin,Urine Negative (Negative); Blood,Urine Moderate (Negative); Clarity,Urine Cloudy (Clear); Color,Urine Yellow (Yellow); Glucose,Urine (UA) Normal (Normal); Ketones,Urine Negative (Negative); Leukocyte Esterase,Urine Moderate (Negative); Nitrite,Urine Negative (Negative); PH,Urine 6.5 pH Units (5.0-8.0); Protein,Urine 30 mg/dL (Neg-Trace); Specific Gravity,Urine 1.016 (1.010-1.025); Urobilinogen,Urine Normal (Normal)
[2017-05-20 17:20] LABS: Bacteria,Urine None Seen per hpf (None-Few); RBC,Urine 30-50 per hpf (0-3); Squamous Epithelial Cell,Urine Many per lpf (None-Few); WBC,Urine 50-100 per hpf (0-3)
[2017-05-20 17:30] LABS: Basophils # 0.1 K/mcL (0.0-0.2); Basophils % 0.7 %; Eosinophils # 0.2 K/mcL (0.0-0.6); Hematocrit 40.9 % (35.3-44.9); Hemoglobin 12.5 g/dL (11.5-15.4); Immature Granulocytes % 0.6 % (0-4); Lymphocytes # 1.3 K/mcL (0.6-4.6); Lymphocytes % 15.4 %; Mean Corpuscular HGB Conc 30.6 g/dL (31.6-35.5); Mean Corpuscular Hemoglobin 27.9 pg (28.0-33.3); Mean Corpuscular Volume 91.3 fL (83.0-100.0); Mean Platelet Volume 11.2 fL (9.4-12.4); Monocytes # 0.9 K/mcL (0.0-1.3); Monocytes % 9.8 %; Neutrophils # 6.2 K/mcL (1.6-8.9); Platelet Count 253 K/mcL (140-400); Red Blood Count 4.48 M/mcL (3.82-4.97); Red Cell Distribution Width 17.7 % (11.5-14.5); Segmented Neutrophils % 71.5 %
[2017-05-20 17:39] LABS: Yeast,Urine Moderate per hpf (None Seen)
[2017-05-20] MEDS ORDERED: Baclofen 10 MG TABLET PO PRN (18:19)
[2017-05-20] MEDS ORDERED: Naloxone 0.4 MG/ML INJ IVP PRN (18:21)
[2017-05-20] MEDS ORDERED: Acetaminophen 325 MG TABLET PO PRN (18:21)
--- NOTE | 2017-05-20 18:36 | Internal Med History&Physical ---
<Rodrigo Swift - Last Filed: 05/20/17 18:45> Date of Encounter: 05/20/17 Time of Encounter: 18:32 Assessment and Plan (1) Altered mental status Current visit: Yes Status: Acute - Had similar episode during last admission, MRI 05/13/2017 no acute changes. - CT head today no acute changes. - Hx of generalized ataxia and baseline dysarthria. - need to rule out seizure, EEG ordered and will consult neurology. - symptoms could be TIA, but will defer neurology to decide further workup. Qualifiers: Altered mental status type: disorientation Qualified Code(s): R41.0 - Disorientation, unspecified (2) UTI (urinary tract infection) Current visit: Yes Status: Acute - Hx of UTI, Ecoli and Klebsiella were grwon in the past, sensitive to augmentin. - change oral abx for pneumonia to Augmentin to cover both PNA and UTI. Qualifiers: Urinary tract infection type: acute cystitis Hematuria presence: without hematuria Qualified Code(s): N30.00 - Acute cystitis without hematuria (3) Pneumonia Current visit: No Status: Acute - [place] abx to Augmentin. Qualifiers: Pneumonia type: due to unspecified organism Laterality: unspecified laterality Lung location: unspecified part of lung Qualified Code(s): J18.9 - Pneumonia, unspecified organism (4) Abdominal pain Current visit: No Status: Acute - resolved at ED. Qualifiers: Abdominal location: generalized Qualified Code(s): R10.84 - Generalized abdominal pain Internal Medicine - H&P: HPI Admitted From: Home Plans for Post Hospital Care: Home History of present illness: 61-year-old female presents emergency Department with concerns of altered mental status and possible difficulty breathing. Patient was recently discharged from the hospital after admission for pneumonia. Family states that she woke at 3 AM and was unable to communicate and was "unresponsive" they did state that she was looking around and had her eyes open however she had difficulty communicating. On initial evaluation emergency department the the patient was unable to communicate via speech however she does understand what was being asked and was able to nod her head yes or no. During observation in emergency department during her workup she was then able to answer questions in 2-3 word answers. Family is now present in the emergency department states that she is back to her baseline. Patient is a poor historian and is unable to give an appropriate history regarding her case presentation. Patient now states that she has some mild cough and shortness of breath however she is also concerned about abdominal pain. Family states patient has had chronic abdominal pain and this is likely unchanged. At the ED, her vital signs were stable. Labs were unremarkable. Chest x-ray revealed left lower lobe infiltrate, unchanged from previous study. CT head no acute abnormalities. She will be admitted as inpatient for further workup. Past Med Surg Social Fam HX - Past Medical History Medical history: arthritis, GERD, hyperlipidemia, hypertension, renal disease, other Psychiatric history: anxiety, depression - Past Surgical History Surgical History: cholecystectomy - Social History Smoking Status: Never smoker Smokeless Tobacco Status: No Alcohol use: none Drug use: none - Family History Son Hx Family GI Disorders: Yes (acid reflux) Internal Medicine - H&P: Meds Baclofen [Lioresal] 10 - 20 mg PO BID PRN 05/07/17 [History] Esomeprazole Magnesium [Nexium] 40 mg PO BID 05/07/17 [History] Gabapentin [Neurontin] 300 mg PO BID 05/07/17 [History] Polyethylene Glycol 3350 [MiraLAX] 17 gm PO BID PRN 05/07/17 [History] Ziprasidone HCl [Geodon] 80 mg PO HS 05/07/17 [History] Lisinopril [Zestril] 10 mg PO DAILY #30 tablet 05/10/17 [Rx] Acetaminophen [Tylenol] 500 mg PO Q6HR PRN 05/11/17 [History] Multivitamin [One Daily Multivitamin] 1 each PO DAILY 05/11/17 [History] Oxygen 3 l NS AD 05/11/17 [History] Benzonatate [Tessalon] 100 mg PO TID PRN #30 capsule 05/16/17 [Rx] Fluticasone Propionate Nasal [Flonase] 100 mcg NS DAILY 20 Days bottle [Rx] levoFLOXacin [Levaquin] 750 mg PO DAILY #5 tablet 05/16/17 [Rx] 3 Allergy/AdvReac Type Severity Reaction Status Date / Time ciprofloxacin [From Cipro] Allergy Itching Verified 05/20/17 14:14 egg Allergy See Verified 05/20/17 14:14 Comments morphine Allergy Hives Verified 05/20/17 14:14 Sulfa (Sulfonamide Allergy Rash Verified 05/20/17 14:14 Antibiotics) All Systems PM: A 10-system review of systems was performed and is negative for pertinent findings except as documented above in the HPI. Review of systems: REVIEW OF SYSTEMS: CONSTITUTIONAL: No weight loss, fever, chills, weakness or fatigue. HEENT: Eyes: No visual loss, blurred vision, double vision or yellow sclerae. Ears, Nose, Throat: No hearing loss, sneezing, congestion, runny nose or sore throat. SKIN: No rash or itching. CARDIOVASCULAR: No chest pain, chest pressure or chest discomfort. No palpitations or edema. RESPIRATORY: No shortness of breath, cough or sputum. GASTROINTESTINAL: No anorexia, nausea, vomiting or diarrhea. No abdominal pain or blood. GENITOURINARY: No dysuria, urgency, or frequency. NEUROLOGICAL: see HPI. MUSCULOSKELETAL: No muscle, back pain, joint pain or stiffness. HEMATOLOGIC: No anemia, bleeding or bruising. LYMPHATICS: No enlarged nodes. No history of splenectomy. PSYCHIATRIC: No history of depression or anxiety. ENDOCRINOLOGIC: No reports of sweating, cold or heat intolerance. No polyuria or polydipsia. - Constitutional Vitals: Temp Pulse Resp BP Pulse Ox 97.8 F 100 20 142/83 100 05/20/17 14:11 05/20/17 16:00 05/20/17 17:53 05/20/17 17:53 05/20/17 16:00 Exam: PHYSICAL EXAMINATION: GENERAL APPEARANCE: The patient is alert, oriented and in no acute distress. HEENT: Head is normocephalic. The sinuses are nontender. Pupils are equal and reactive. The nares are patent. Oropharynx clear without lesions. NECK: Supple without lymphadenopathy. HEART: Regular rate and rhythm. LUNGS: No crackles or wheezes are heard. ABDOMEN: Soft, nontender, nondistended with good bowel sounds heard. Inguinal area is normal. EXTREMITIES: Without cyanosis, clubbing or edema. NEUROLOGICAL: Gross nonfocal. SKIN: Warm and dry without any rash. Internal Med - H&P Results - Labs CBC & Chem 7: 05/20/17 17:20 05/20/17 15:57 <Kathy Aj M - Last Filed: 05/20/17 20:44> Date of Encounter: 05/20/17 Internal Medicine - H&P: HPI History of present illness: Ms. Alberto is a 61 year old female All Systems PM: A 10-system review of systems was performed and is negative for pertinent findings except as documented above in the HPI. - Constitutional Vitals: Temp Pulse Resp BP Pulse Ox 97.4 F L 100 14 123/84 100 05/20/17 18:44 05/20/17 18:44 05/20/17 18:44 05/20/17 18:44 05/20/17 18:44 Internal Med - H&P Results - Labs CBC & Chem 7: 05/20/17 17:20 05/20/17 15:57 - Attending Attestation I have personally performed a face to face evaluation on this patient. I have reviewed and agree with the care plan as written by Rodrigo Swift NP. patient presents with AMS. Recently here for pneumonia/COPD exacerbation. Patient woke up around 3 AM and unable to communicate. She had her eyes open and staring in space. No jerking movements or reported seizure activity. She was able to go back to her baseline in the ED briefly but then went back into inability to communicate. Patient has baseline dysarthria. I know the patient from a previous visit. CT head negative for acute findings. CXR showed old infiltrates. labs unremarkable. UA with mod blood, mod leuk esterase, neg nitrite and bacterial. Was on levaquin from discharge from last visit MRI brain 05/13 negative for acute findings. By the time I saw the patient, she was able to communicate just like she did last time she was here. She told me her name, location, year, and month. She is at baseline bed bound. She was able to squeze my hands and pull me towards her on command. c/s neurology for mental status and further work up. EEG ordered. change abx to augmentin for better coverage of UTI and pneumonia.
[2017-05-20] MEDS: Gabapentin 300 MG CAPSULE PO SCH (20:49)
[2017-05-20] MEDS: Ziprasidone 80 MG CAPSULE PO SCH (20:49)
[2017-05-21] MEDS: traMADol 50 MG TABLET PO PRN ×2 (00:22→06:34)
[2017-05-21] MEDS: Benzonatate 100 MG CAPSULE PO PRN ×2 (00:23→22:34)
[2017-05-21] MEDS: Fluticasone Propionate Nasal 50 MCG/SPRAY BOTTLE NS SCH ×2 (00:29→09:50)
[2017-05-21] MEDS ORDERED: Nystatin Cream 15 GM TUBE TP PRN (02:39)
[2017-05-21 05:13] LABS: Hematocrit 38.1 % (35.3-44.9); Hemoglobin 11.2 g/dL (11.5-15.4); Mean Corpuscular HGB Conc 29.4 g/dL (31.6-35.5); Mean Corpuscular Hemoglobin 27.7 pg (28.0-33.3); Mean Platelet Volume 10.9 fL (9.4-12.4); Platelet Count 197 K/mcL (140-400); Red Blood Count 4.04 M/mcL (3.82-4.97)
[2017-05-21 05:24] LABS: Mean Corpuscular Volume 94.3 fL (83.0-100.0)
[2017-05-21 05:31] LABS: BUN/Creatinine Ratio 14 (6-26); Blood Urea Nitrogen 10 mg/dL (8-23); Carbon Dioxide 26 mEq/L (23-29); Chloride 105 mEq/L (98-107); Glucose 81 mg/dL (70-105); Osmolality,Calculated 284 (280-300); Potassium 3.8 mEq/L (3.5-5.1); Sodium 138 mEq/L (136-145); eGFR For African Americans > 60 (> 60); eGFR For Non-African Americans > 60 (> 60)
[2017-05-21] MEDS: *HR* Heparin 5,000 UNIT/ML VIAL SQ SCH ×2 (06:34→18:36)
[2017-05-21] MEDS ORDERED: levoFLOXacin 750 MG TABLET PO SCH (09:00)
[2017-05-21] MEDS: Fluconazole 100 MG TABLET PO SCH (09:49)
[2017-05-21] MEDS: Multivit/Ca/Min/Fe/FA 1 TAB TABLET PO SCH (09:50)
[2017-05-21] MEDS: Gabapentin 300 MG CAPSULE PO SCH ×2 (09:50→22:34)
--- NOTE | 2017-05-21 11:32 | EEG/EMG/Oth Biometrics Report ---
EEG Procedure Report Date of procedure: 05/21/17 EEG Procedure: Routine EEG Procedure Note: This is a report of a 21 channel bipolar and referential montage EEG. The posterior dominant rhythm consisted of moderate to low voltage theta frequency at about 6-7 Hz. This rhythm does not attenuate to eye opening. Hyperventilation is not performed during the recording. Periods of drowsiness and stage II sleep are identified as referenced by dropout of the posterior dominant rhythm and emergence of vertex activity, K complexes, and sleep spindles. Photic stimulation is performed and does not produce a driving response. EKG rhythm strip reveals normal sinus rhythm at 96 bpm. Impressions: This EEG recording is abnormal and is consistent with a mild generalized encephalopathy. There is no evidence of epileptiform activity identified during the study. Comment: A normal EEG does not preclude a diagnosis of seizure or epilepsy. If the clinical suspicion for seizure activity is high, serial EEGs or perhaps a prolonged recording may increase the yield. Please correlate clinically.
[2017-05-21] MEDS: Nystatin POWDER 30 GM BOTTLE TP SCH ×2 (15:00→22:35)
--- NOTE | 2017-05-21 15:24 | Internal Med Progress Note ---
Date of Encounter: 05/21/17 Time of Encounter: 15:21 - Assessment and plan (1) Acute encephalopathy Current Visit: No Status: Resolved Assessment and plan: reportedly had an episode where she was unresponsive and unable to communicate. Has been reports patient appears agitated and unconnected. No evidence of tongue biting. Had recent stabilization with similar symptoms. MRI 05/13/2017 no acute changes. ED head CT with no acute changes. Hx of generalized ataxia and baseline dysarthria. EEG consistent with a mild generalized encephalopathy. Symptoms could be TIA; defer neurology to decide further workup. 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 has been nonambulatory for the last 15 years. Appears at baseline. Requires 24-hour care. Supportive care. (3) Abdominal pain Current Visit: No Status: Acute Assessment and plan: Reported prior to arrival. Resolved in ED Qualifiers: Abdominal location: generalized Qualified Code(s): R10.84 - Generalized abdominal pain (4) Pneumonia Current Visit: No Status: Acute Assessment and plan: CXR with atelectasis or infiltrate to LLL. Afebrile, no elevated CBC. Continue Augmentin for now. Respiratory PCR, sputum culture and urinary antigens pending. Qualifiers: Pneumonia type: due to unspecified organism Laterality: unspecified laterality Lung location: unspecified part of lung Qualified Code(s): J18.9 - Pneumonia, unspecified organism (5) UTI (urinary tract infection) Current Visit: Yes Status: Acute Assessment and plan: Hx of UTI, Ecoli and Klebsiella were grown in the past, sensitive to augmentin. Augmentin to cover both PNA and UTI. Qualifiers: Urinary tract infection type: acute cystitis Hematuria presence: without hematuria Qualified Code(s): N30.00 - Acute cystitis without hematuria (6) DVT prophylaxis Current Visit: No Status: Acute Assessment and plan: heparin - Subjective Interval history: Seen and examined at bedside, patient is new to me information obtained from chart review, and patient report although most history is obtained from as patient is poor historian and difficult to understand. reports 2 episodes over the last week for patient becomes what sounds like agitated and flustered and then has an episode of unresponsiveness. describes as she is mentally not bear. Both episodes have resolved spontaneously without intervention. No loss of bowel or bladder continence, no evidence of tongue biting. No seizure-like activity per . On my exam the patient says she feels about the same. She has no complaints. - Constitutional Vitals: Temp Pulse Resp BP Pulse Ox 98.3 F 95 16 114/73 100 05/21/17 11:39 05/21/17 11:39 05/21/17 11:39 05/21/17 11:39 05/21/17 11:39 General appearance: Present: A&O X 3, morbidly obese - Head Head exam: Present: atraumatic, normocephalic - Eye Eye exam: Present: PERRL, conjuntiva pink, sclera anicteric Pupils: Present: PERRL - Neck Neck exam general surgery: Present: supple, trachea midline. Absent: lymphadenopathy - Respiratory Respiratory exam: Present: CTAB. Absent: accessory muscle use, rales, rhonchi, wheezes - Cardiovascular Cardiovascular exam: Present: RRR, +S1, +S2. Absent: diastolic murmur, gallop, rubs, systolic murmur - GI/Abdominal GI/Abdominal exam: Present: normal bowel sounds, soft, no peritoneal signs. Absent: distended, tenderness - Extremities Exam Extremities exam: Present: pedal edema, warm, radial pulses palpable and symmetrical. Absent: calf tenderness, cyanotic - Neurological Exam Neurological exam: Present: CN II-XII intact, oriented X3, no focal deficits, speech deficit. Absent: normal gait (Non-ambulatory), pronater drift, facial droop - Skin Skin exam: Present: dry, intact Internal Medicine: Result - Labs CBC & Chem 7: 05/21/17 04:45 05/21/17 04:45 Labs: Short CBC 05/21/17 Range/Units 04:45 WBC 6.2 (4.3-11.1) K/mcL Hgb 11.2 L (11.5-15.4) g/dL Hct 38.1 (35.3-44.9) % Plt Count 197 (140-400) K/mcL BMP 05/21/17 04:45 Sodium 138 Potassium 3.8 Chloride 105 Carbon Dioxide 26 BUN 10 Creatinine 0.72 Glucose 81 Calcium 9.0 - ABG Interpretation ABG results: PT/INR, D-dimer D-Dimer 1024 ng/mLFEU (0-500) H 05/21/17 12:00 Consult Discharge Plan - Plan Additional Instructions: Admitted as inpatient Referrals: Rolando Rolon MD [Primary Care Provider] -
--- NOTE | 2017-05-21 15:46 | Neurology - Consult Note ---
Date of Encounter: 05/21/17 Time of Encounter: 15:42 Assessment and Plan (1) Hypersomnolence Current Visit: Yes Status: Acute Patient has been recently experiencing periods of time where she is increasingly somnolent and difficult to arouse. However I am not convinced that this is due to seizure activity or some primary neurologic etiology. Her EEG was negative for evidence of seizure activity. Her MRI does not reveal evidence of profound atrophy, hemorrhage, infarct or neoplasm. I suspect that the hypersomnolence may be due to medication effect. Apparently she takes Geodon, baclofen, gabapentin. In is a question of whether or not she takes morphine at home. Her tells me that these waxing and waning levels of consciousness may last for 5-10 minutes working up to 1 hour. She denies any headache visual changes or other neurologic phenomena. At this time I recommend reevaluating her medication regimen. She was actually scheduled to see Dr. Lu in his office today but is hospitalized now. She has long-standing cerebellar ataxia which I do not feel is contributing to her current hospitalization. Otherwise from a neurologic perspective I cannot identify anything else to speak of. She should follow with Dr. Lu upon hospital discharge. History of Present Illness HPI: Ms. Alberto is a 61 year old female seen for neurologic consultation secondary to episodes of decreased levels of responsiveness. 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 Her speech is very dysarthric. She has ataxic movements of the upper extremities and profound weakness of the legs and is bedridden. She takes baclofen, and gabapentin for leg cramps. She is also taking Geodon. His thought that perhaps these might be seizures however an EEG was negative for evidence of seizure activity. She was admitted recently with a similar case presentation about a week or 2 ago. MRI scan of the brain was completed at that time. The study was degraded by motion however revealed no evidence of any acute infarct, did not reveal profound atrophy of the brain. However this patient is had multiple evaluations by different providers at different institutions. She does not have a prior history of seizure. Currently she is alert and oriented back to her baseline. Past Med Surg Social Fam HX - Past Medical History Medical history: arthritis, GERD, hyperlipidemia, hypertension, renal disease, other Psychiatric history: anxiety, depression - Past Surgical History Surgical History: cholecystectomy - Social History Smoking Status: Never smoker Smokeless Tobacco Status: No Alcohol use: none Drug use: none - Family History Son Hx Family GI Disorders: Yes (acid reflux) Medications and Allergies Baclofen [Lioresal] 10 - 20 mg PO BID PRN 05/07/17 [History] Esomeprazole Magnesium [Nexium] 40 mg PO BID 05/07/17 [History] Gabapentin [Neurontin] 300 mg PO BID 05/07/17 [History] Polyethylene Glycol 3350 [MiraLAX] 17 gm PO BID PRN 05/07/17 [History] Ziprasidone HCl [Geodon] 80 mg PO HS 05/07/17 [History] Lisinopril [Zestril] 10 mg PO DAILY #30 tablet 05/10/17 [Rx] Acetaminophen [Tylenol] 500 mg PO Q6HR PRN 05/11/17 [History] Multivitamin [One Daily Multivitamin] 1 each PO DAILY 05/11/17 [History] Oxygen 3 l NS AD 05/11/17 [History] Benzonatate [Tessalon] 100 mg PO TID PRN #30 capsule 05/16/17 [Rx] Fluticasone Propionate Nasal [Flonase] 100 mcg NS DAILY 20 Days bottle [Rx] levoFLOXacin [Levaquin] 750 mg PO DAILY #5 tablet 05/16/17 [Rx] 3 Allergy/AdvReac Type Severity Reaction Status Date / Time ciprofloxacin [From Cipro] Allergy Itching Verified 05/20/17 14:14 egg Allergy See Verified 05/20/17 14:14 Comments morphine Allergy Hives Verified 05/20/17 14:14 Sulfa (Sulfonamide Allergy Rash Verified 05/20/17 14:14 Antibiotics) All Systems: The remainder of the systems were reviewed and are negative Review of Systems: Review of systems is consistent with a history of present illness and otherwise negative. Physical Examination - Vital Signs Vital Signs: Initial Vital Signs Temp Pulse Resp BP Pulse Ox 97.8 F 99 18 148/91 100 05/20/17 14:11 05/20/17 14:11 05/20/17 14:11 05/20/17 14:11 05/20/17 14:11 - Exam Exam: Neurologic examination finds following; Cerebral functions-patient is awake and alert, she is very difficult to understand because of profoundly dysarthric speech. However this is a long- standing finding. She is able to follow simple commands. However her has to frequently interpret what she is saying so that I understand. She is not encephalopathic at this time. Cranial nerves-pupils are equal and reactive to light and accommodation, she does have bidirectional nystagmus however extraocular motility is intact. I also find nystagmus in the vertical plane with upward gaze and downward gaze. Sensory to face is intact. No facial asymmetry. Speech is profoundly dysarthric. There is no tongue atrophy, no tongue fasciculations are present. Cerebellar-she has significant ataxia of [id number] with both upper extremities. Her legs are profoundly weak and I am not able to check heel-to- taylor. Motor exam-she has 3/5 strength of the deltoids biceps and triceps symmetrically. 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 She is unable to raise the legs off the bed. She is able to wiggle the toes on command. She has decreased tone of both legs. Sensory exam finds she does have normal sensation of the upper extremities and lower extremities. Proprioception is intact. Deep tendon reflexes-absent throughout. No Babinski or clonus are present. Results - Laboratory Findings CBC and BMP: 05/21/17 04:45 05/21/17 04:45 Abnormal lab findings: Abnormal lab results Hgb 11.2 g/dL (11.5-15.4) L 05/21/17 04:45 MCH 27.7 pg (28.0-33.3) L 05/21/17 04:45 MCHC 29.4 g/dL (31.6-35.5) L 05/21/17 04:45 RDW 18.0 % (11.5-14.5) H 05/21/17 04:45 D-Dimer 1024 ng/mLFEU (0-500) H 05/21/17 12:00 Urine Clarity Cloudy (Clear) A 05/20/17 17:00 Urine Protein 30 mg/dL (Neg-Trace) H 05/20/17 17:00 Urine Blood Moderate (Negative) H 05/20/17 17:00 Ur Leukocyte Esterase Moderate (Negative) H 05/20/17 17:00 Urine Microscopic RBC 30-50 per hpf (0-3) H 05/20/17 17:00 Urine Microscopic WBC 50-100 per hpf (0-3) H 05/20/17 17:00 Ur Squamous Epith Cells Many per lpf (None-Few) H 05/20/17 17:00 Urine Yeast Moderate per hpf (None Seen) H 05/20/17 17:00 Consult Discharge Plan - Plan Additional Instructions: Admitted as inpatient Referrals: Rolando Rolon MD [Primary Care Provider] -
--- NOTE | 2017-05-21 20:10 | Electrocardiograph Report ---
[place] [id number] Test Date: 2017-05-20 Pat Name: Chinyere Alberto Department: 104 Room: 3B43 Gender: F Credentials Specialist: : [id number] Requested By: Soy Martin Order Number: [id number] Reading MD: Anselmo Sorto MD Measurements Intervals [place] Rate: 99 P: 70 SD: 175 QRS: 57 QRSD: 72 T: 39 QT: 340 QTc: 396 Interpretive Statements SINUS RHYTHM Electronically Signed On 05-21-2017 20:08:54 EDT by Anselmo Sorto MD
[2017-05-21] MEDS: Ziprasidone 80 MG CAPSULE PO SCH (22:34)
[2017-05-21] MEDS: Clotrimazole Vag CRM 45 GM TUBE VG SCH (22:35)
[2017-05-22] MEDS: *HR* Heparin 5,000 UNIT/ML VIAL SQ SCH ×2 (06:19→17:07)
[2017-05-22] MEDS: Benzonatate 100 MG CAPSULE PO PRN ×2 (09:34→22:20)
[2017-05-22] MEDS: Multivit/Ca/Min/Fe/FA 1 TAB TABLET PO SCH (09:34)
[2017-05-22] MEDS: traMADol 50 MG TABLET PO PRN (09:34)
[2017-05-22] MEDS: Gabapentin 300 MG CAPSULE PO SCH ×2 (09:34→22:22)
[2017-05-22] MEDS: Fluconazole 100 MG TABLET PO SCH (09:34)
[2017-05-22] MEDS: Nystatin POWDER 30 GM BOTTLE TP SCH ×3 (09:35→22:22)
[2017-05-22] MEDS: Fluticasone Propionate Nasal 50 MCG/SPRAY BOTTLE NS SCH (09:35)
[2017-05-22] MEDS ORDERED: Ondansetron 4 MG/2 ML VIAL IVP ONE (10:33)
[2017-05-22] MEDS: Miconazole w/zinc oxide&karaya 92 APPL/92 GM TUBE TP SCH ×2 (16:17→22:22)
--- NOTE | 2017-05-22 17:16 | Internal Med Progress Note ---
Date of Encounter: 05/22/17 Time of Encounter: 11:30 - Time Spent With Patient (1) Acute encephalopathy Current Visit: No Status: Resolved Assessment and plan: reportedly had an episode where she was unresponsive and unable to communicate. Has been reports patient appears agitated and unconnected. No evidence of tongue biting. Had recent stabilization with similar symptoms. MRI 05/13/2017 no acute changes. ED head CT with no acute changes. Hx of generalized ataxia and baseline dysarthria. EEG consistent with a mild generalized encephalopathy. Evaluated by neurology who did not suspect seizure activity or primary neurologic etiology. Of note, patient had an episode of staring off and unresponsive numbness on 05/22. reports episode is consistent the 2 prior episodes that prompted hospitalization. She may benefit from continuous EEG if episodes persist. Continue to monitor for now. Neurology following. 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 has been nonambulatory for the last 15 years. Appears at baseline. Requires 24-hour care. Supportive care. (3) Abdominal pain Current Visit: No Status: Acute Assessment and plan: Reported prior to arrival. Resolved in ED Qualifiers: Abdominal location: generalized Qualified Code(s): R10.84 - Generalized abdominal pain (4) Pneumonia Current Visit: No Status: Acute Assessment and plan: CXR with atelectasis or infiltrate to LLL. Afebrile, no elevated CBC. Urinary antigens negative. Continue Augmentin for now. Respiratory PCR pending. Qualifiers: Pneumonia type: due to unspecified organism Laterality: unspecified laterality Lung location: unspecified part of lung Qualified Code(s): J18.9 - Pneumonia, unspecified organism (5) UTI (urinary tract infection) Current Visit: Yes Status: Acute Assessment and plan: Hx of UTI, Ecoli and Klebsiella were grown in the past, sensitive to augmentin. Augmentin to cover both PNA and UTI. Qualifiers: Urinary tract infection type: acute cystitis Hematuria presence: without hematuria Qualified Code(s): N30.00 - Acute cystitis without hematuria (6) DVT prophylaxis Current Visit: No Status: Acute Assessment and plan: heparin - Subjective Interval history: Seen and examined at bedside; patient was seen earlier in shift and appear to be at baseline. Speech was garbled but she was responsive and I can make sense of what she was saying. I was called to the room abruptly this afternoon as patient was having another episode per her . Has been says he heard patient moan out he looked over and she was unresponsive/out of it. On my exam she was somewhat difficult to arouse. She appears somnolent and somewhat post ictal. Episode lasted approximately 5-10 minutes and patient returned to baseline. Vital signs are stable, blood sugars was acceptable. - Constitutional Vitals: Temp Pulse Resp BP Pulse Ox 99.1 F 98 16 123/82 98 05/22/17 15:50 05/22/17 15:50 05/22/17 15:50 05/22/17 15:50 05/22/17 15:50 General appearance: Present: A&O X 3, morbidly obese - Head Head exam: Present: atraumatic, normocephalic - Eye Eye exam: Present: PERRL, conjuntiva pink, sclera anicteric Pupils: Present: PERRL - Neck Neck exam general surgery: Present: supple, trachea midline. Absent: lymphadenopathy - Respiratory Respiratory exam: Present: CTAB. Absent: accessory muscle use, rales, rhonchi, wheezes - Cardiovascular Cardiovascular exam: Present: RRR, +S1, +S2. Absent: diastolic murmur, gallop, rubs, systolic murmur - GI/Abdominal GI/Abdominal exam: Present: normal bowel sounds, soft, no peritoneal signs. Absent: distended, tenderness - Extremities Exam Extremities exam: Present: warm, radial pulses palpable and symmetrical. Absent : calf tenderness, cyanotic, pedal edema - Neurological Exam Neurological exam: Present: CN II-XII intact, oriented X3, no focal deficits, speech deficit. Absent: pronater drift, facial droop - Skin Skin exam: Present: dry, intact Internal Medicine: Result - Labs CBC & Chem 7: 05/21/17 04:45 05/21/17 04:45 - ABG Interpretation ABG results: PT/INR, D-dimer D-Dimer 1024 ng/mLFEU (0-500) H 05/21/17 12:00 - Impressions Impressions Chest CTA 05/21/17 15:15 IMPRESSION: 1. No evidence of pulmonary embolism or acute pulmonary abnormality. 2. Stable 6 mm nodule in the right upper lobe, presumed benign due to long-term stability. 3. Tiny hiatal hernia. D/ / 05/21/2017 17:17:00 Garima Lopez / margareth Interpreting Provider: Garima Lopez Consult Discharge Plan - Plan Additional Instructions: Admitted as inpatient Referrals: Rolando Rolon MD [Primary Care Provider] -
[2017-05-22] MEDS ORDERED: 0.9 % Sodium Chloride 1,000 ML ONE (22:04)
[2017-05-22] MEDS: Ziprasidone 80 MG CAPSULE PO SCH (22:22)
[2017-05-22] MEDS: Clotrimazole Vag CRM 45 GM TUBE VG SCH (22:22)
--- NOTE | 2017-05-22 23:38 | Event Note ---
Date of Encounter: 05/22/17 Time of Encounter: 23:30 Pt. had two episodes of absence-type seizures this evening, one at approximately 19:00 and the second at approximately 23:00. Pts. nurse reports pt. called out and informed her at 23:00 that she felt like she was going to have an episode. Nurse reports pts. eyes fluttered and pt. was not responsive to her questions for approximately 5-10 seconds during 19:00 episode and then pt. returned to baseline. Records from earlier in the day showed another episode at approximately 15:00. Dr. Turk's notes reviewed. Recommendation for serial EEGs may be beneficial in exploring.
[2017-05-22] MEDS: 0.9 % Sodium Chloride 1,000 ML IVC SCH (23:57)
[2017-05-23] MEDS: *HR* Heparin 5,000 UNIT/ML VIAL SQ SCH (06:24)
[2017-05-23 07:27] LABS: BUN/Creatinine Ratio 12 (6-26); Blood Urea Nitrogen 9 mg/dL (8-23); Calcium 8.8 mg/dL (8.6-10.3); Carbon Dioxide 27 mEq/L (23-29); Chloride 109 mEq/L (98-107); Glucose 92 mg/dL (70-105); Osmolality,Calculated 292 (280-300); Potassium 4.3 mEq/L (3.5-5.1); Sodium 142 mEq/L (136-145); eGFR For African Americans > 60 (> 60); eGFR For Non-African Americans > 60 (> 60)
[2017-05-23 07:38] LABS: Hemoglobin 11.4 g/dL (11.5-15.4); Mean Corpuscular HGB Conc 30.8 g/dL (31.6-35.5); Mean Corpuscular Hemoglobin 27.6 pg (28.0-33.3); Mean Corpuscular Volume 89.6 fL (83.0-100.0); Mean Platelet Volume 11.8 fL (9.4-12.4); Platelet Count 220 K/mcL (140-400); Red Blood Count 4.13 M/mcL (3.82-4.97)
[2017-05-23] MEDS: Multivit/Ca/Min/Fe/FA 1 TAB TABLET PO SCH (09:35)
[2017-05-23] MEDS: Fluconazole 100 MG TABLET PO SCH (09:36)
[2017-05-23] MEDS: Nystatin POWDER 30 GM BOTTLE TP SCH ×2 (09:36→16:34)
[2017-05-23] MEDS: Miconazole w/zinc oxide&karaya 92 APPL/92 GM TUBE TP SCH (09:36)
[2017-05-23] MEDS: Gabapentin 300 MG CAPSULE PO SCH (09:36)
[2017-05-23] MEDS: Fluticasone Propionate Nasal 50 MCG/SPRAY BOTTLE NS SCH (09:36)
[2017-05-23] MEDS: 0.9 % Sodium Chloride 1,000 ML IVC SCH (09:37)
[2017-05-23 12:23] LABS: Adenovirus Not Detected (Not Detect); Bordetella Pertussis Not Detected (Not Detect); Chlamydophila pneumoniae Not Detected (Not Detect); Coronavirus 229E Not Detected (Not Detect); Coronavirus HKU1 Not Detected (Not Detect); Coronavirus NL63 Not Detected (Not Detect); Coronavirus OC43 Not Detected (Not Detect); Human Metapneumovirus Not Detected (Not Detect); Human Rhinovirus/Enterovirus Not Detected (Not Detect); Influenza A Subtype 2009 H1 Not Detected (Not Detect); Influenza A Untypeable Not Detected (Not Detect); Influenza B Not Detected (Not Detect); Mycoplasma pneumoniae Not Detected (Not Detect); Parainfluenza Virus 1 Not Detected (Not Detect); Parainfluenza Virus 2 Not Detected (Not Detect); Parainfluenza Virus 3 Not Detected (Not Detect); Parainfluenza Virus 4 Not Detected (Not Detect); Respiratory Syncytial Virus Not Detected (Not Detect)
[2017-05-23 15:54] VITALS: BP 105/73
--- NOTE | 2017-05-23 17:16 | Discharge Summary ---
Orders not resulted at time of discharge: Pending orders 05/24/17 04:00 BMP [Basic Metabolic Panel] AM 0400 Complete Blood Count w/o Diff [HEME] AM 0400 05/25/17 04:00 BMP [Basic Metabolic Panel] AM 0400 Complete Blood Count w/o Diff [HEME] AM 0400 05/26/17 04:00 BMP [Basic Metabolic Panel] AM 0400 Complete Blood Count w/o Diff [HEME] AM 0400 05/27/17 04:00 BMP [Basic Metabolic Panel] AM 0400 Complete Blood Count w/o Diff [HEME] AM 0400 Date of Encounter: 05/23/17 Time of Encounter: 17:13 - Discharge Diagnosis (1) Acute encephalopathy Priority: Primary Status: Resolved Comments: (1) Acute encephalopathy Current Visit: No Status: Resolved Assessment and plan: presented after an episode of increased somnolence and difficulty to arouse. Patient had similar symptoms last week with no cause found. She subsequently has had 3 additional episodes while inpatient (patient becomes unresponsive with blank stare, appears post ictal). MRI 05/13/2017 no acute changes. ED head CT with no acute changes. 05/22/17 repeat brain MRI without evidence of acute infarct. Hx of generalized ataxia and baseline dysarthria. EEG consistent with a mild generalized encephalopathy. Evaluated by neurology who did not suspect seizure activity or primary neurologic etiology however given symptom recurrence a continuous EEG as recommended. Discussed case with [facility] and plan to transfer when bed is available. 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 has been nonambulatory for the last 15 years. Appears at baseline. Requires 24-hour care. Supportive care. (3) Abdominal pain Current Visit: No Status: Acute Assessment and plan: Reported prior to arrival. Resolved in ED Qualifiers: Abdominal location: generalized Qualified Code(s): R10.84 - Generalized abdominal pain (4) Pneumonia Current Visit: No Status: Acute Assessment and plan: CXR with atelectasis or infiltrate to LLL. Afebrile, no elevated CBC. Urinary antigens, respiratory PCR negative. Likely does not appear to be pneumonia, stop Augmentin (patient is refusing anyways). Encouraged aggressive I-S Qualifiers: Pneumonia type: due to unspecified organism Laterality: unspecified laterality Lung location: unspecified part of lung Qualified Code(s): J18.9 - Pneumonia, unspecified organism (5) UTI (urinary tract infection) Current Visit: Yes Status: Acute Assessment and plan: Hx of UTI. UA with leuk esterase and many squamous cells and yeast. No urine culture available for review. She did receive 2 doses of fluconazole. Suspect possible contamination. Initially treated with Augmentin however patient refusing ATB. Recommend repeat UA at [facility] and treat accordingly Qualifiers: Urinary tract infection type: acute cystitis Hematuria presence: without hematuria Qualified Code(s): N30.00 - Acute cystitis without hematuria Hospital course: Please see assessment and plan for hospital course - Time Spent with Patient Total time spent providing and/or coordinating discharge services: - Discharge Medications Home Medications: Baclofen [Lioresal] 10 - 20 mg PO BID PRN 05/07/17 [History] Esomeprazole Magnesium [Nexium] 40 mg PO BID 05/07/17 [History] Gabapentin [Neurontin] 300 mg PO BID 05/07/17 [History] Polyethylene Glycol 3350 [MiraLAX] 17 gm PO BID PRN 05/07/17 [History] Ziprasidone HCl [Geodon] 80 mg PO HS 05/07/17 [History] Lisinopril [Zestril] 10 mg PO DAILY #30 tablet 05/10/17 [Rx] Acetaminophen [Tylenol] 500 mg PO Q6HR PRN 05/11/17 [History] Multivitamin [One Daily Multivitamin] 1 each PO DAILY 05/11/17 [History] Oxygen 3 l NS AD 05/11/17 [History] Benzonatate [Tessalon] 100 mg PO TID PRN #30 capsule 05/16/17 [Rx] Fluticasone Propionate Nasal [Flonase] 100 mcg NS DAILY 20 Days bottle [Rx] Allergies/Adverse Reactions: 3 Allergy/AdvReac Type Severity Reaction Status Date / Time ciprofloxacin [From Cipro] Allergy Itching Verified 05/20/17 14:14 egg Allergy See Verified 05/20/17 14:14 Comments morphine Allergy Hives Verified 05/20/17 14:14 Sulfa (Sulfonamide Allergy Rash Verified 05/20/17 14:14 Antibiotics) Date of admission: 05/20/17 18:21 Primary care physician: Rolando Rolon MD Consults: 05/21/17 00:03 Consult to Money Market Clerk [CONS] Routine Reason for SW Consult: patient from home with family, patient chair bound, patient's personal hygeine is lacking with stage 2 to coccyx and stool encrusted in home walter per ER 05/21/17 02:45 Consult to Wound Care [CONS] Routine Reason for Consult: Sacral decubitis ulcer, bed-bound Call Completed: No 05/21/17 11:55 Consult to Interpret Exam [CONS] Routine Consulting Provider: Julius Restrepo Consult to Interpret Exam: Interpret EEG Discharging clinician: Jami Levine Anticipated date of discharge: 05/23/17 - Constitutional Vitals: Temp Pulse Resp BP Pulse Ox 98.6 F 108 18 105/73 98 05/23/17 15:53 05/23/17 15:53 05/23/17 15:53 05/23/17 15:53 05/23/17 15:53 General appearance: Present: A&O X 3, morbidly obese - Head Head exam: Present: atraumatic, normocephalic - Eye Eye exam: Present: PERRL, conjuntiva pink, sclera anicteric Pupils: Present: PERRL - Neck Neck exam general surgery: Present: supple, trachea midline. Absent: lymphadenopathy - Respiratory Respiratory exam: Present: CTAB. Absent: accessory muscle use, rales, rhonchi, wheezes - Cardiovascular Cardiovascular exam: Present: RRR, +S1, +S2. Absent: diastolic murmur, gallop, rubs, systolic murmur - GI/Abdominal GI/Abdominal exam: Present: normal bowel sounds, soft, no peritoneal signs. Absent: distended, tenderness - Extremities Exam Extremities exam: Present: pedal edema, warm, radial pulses palpable and symmetrical. Absent: calf tenderness, cyanotic - Neurological Exam Neurological exam: Present: CN II-XII intact, oriented X3, no focal deficits, speech deficit. Absent: pronater drift, facial droop - Skin Skin exam: Present: dry, intact - Patient Status Disposition: Transfer Short-Term Hosp Condition: Fair Overall status at discharge: patient is back to baseline - Discharge Instructions Follow Up With: Rolando Rolon MD [Primary Care Provider] - Additional Instructions: Admitted as inpatient
[2017-05-23] MEDS ORDERED: Ondansetron ODT 4 MG TAB.RAPDIS SL STA (18:10)
== END 2017-05-23 18:25 | disposition short-term general hospital (02) | DRG 70 ==
LOC: 3BNU 14:04 → EMEROO 14:04 → 3BNU 18:12
PROVIDERS: ADMIT Internal Medicine; ATTEND Registered Nurse

== ENCOUNTER 2021-07-26 14:20 | Observation (INO) ==
[2021-07-26] MEDS ORDERED: Acetaminophen IV 1,000 MG/100 ML BAG IVPB ONE (14:26)
[2021-07-26] MEDS ORDERED: *HR* FentaNYL (PF) 100 MCG/2 ML VIAL IVP PRN (14:44)
[2021-07-26] MEDS ORDERED: *HR* FentaNYL (PF) 100 MCG/2 ML VIAL ONE (15:38)
[2021-07-26] MEDS ORDERED: Ondansetron 4 MG/2 ML VIAL ONE (15:38)
[2021-07-26] MEDS ORDERED: Lidocaine -MPF 2% 2 ML VIAL ONE (15:38)
[2021-07-26] MEDS ORDERED: *HR* Propofol 200 MG/20 ML VIAL IVP ONE (15:38)
[2021-07-26] MEDS ORDERED: Ringers Solution, Lactated 1,000 ML IVC SCH (16:00)
[2021-07-26] MEDS ORDERED: Lidocaine HCL 4 ML Topical Solution (Laryng-O-Jet Kit Sterile Pak) TP ONE (16:54)
[2021-07-26] MEDS ORDERED: *HR* Labetalol 20 MG/4 ML SYRINGE IVP ONE ×2 (17:51→18:24)
[2021-07-26] MEDS ORDERED: *HR* HYDROcodone/Acet 5/325 mg TABLET PO PRN (20:36)
[2021-07-26] MEDS ORDERED: polyethylene glycoL 3350 17 GM POWD.PACK PO PRN (20:36)
[2021-07-26] MEDS ORDERED: Ondansetron 4 MG/2 ML VIAL IVP PRN (20:36)
[2021-07-26] MEDS ORDERED: *HR* Belladonna Alkaloids/Opium 30 MG RECTAL SUPPOSITORY RC PRN (20:36)
[2021-07-26] MEDS ORDERED: Baclofen 10 MG TABLET PO PRN (20:36)
[2021-07-26] MEDS ORDERED: Naloxone 0.4 MG/ML INJ IVP PRN (20:36)
[2021-07-26] MEDS ORDERED: Ziprasidone 80 MG CAPSULE PO SCH (21:00)
[2021-07-26] MEDS: Gabapentin 300 MG CAPSULE PO SCH (22:41)
[2021-07-27] MEDS: Gabapentin 300 MG CAPSULE PO SCH ×2 (08:03→14:30)
[2021-07-27 15:03] VITALS: BP 137/76; PULSE 104; TEMP 98.5; O2SAT 94
== END 2021-07-27 15:48 | disposition other institution (70) ==
LOC: 3BNU 14:20 → SAMDAY 14:20
PROVIDERS: ADMIT Urology; ATTEND Urology